=== PATIENT | male | born 1990 | race African-American/Black ===

== ENCOUNTER 2017-08-31 22:31 | Emergency (ER) | payer OTHER ==
[2017-08-31] MEDS ORDERED: ALBUTEROL 2.5 MG/3 ML NEB SOL ONE (23:04)
[2017-08-31] MEDS ORDERED: IPRATROPIUM BROM 0.5MG/2.5ML ONE (23:04)
[2017-08-31] MEDS ORDERED: DEXAMETHASONE 10 MG/ML VIAL ONE (23:04)
--- NOTE | 2017-08-31 23:46 | EDPHYS ---
Physician Documentation [facility] Name: Garcia Mcelroy Age: 26 yrs Sex: Male : 1990 Arrival Date: 08/31/2017 Time: 22:33 Bed 8 Private MD: ED Physician Manuel Mcgee HPI: 08/31 23:39 This 26 yrs old Black Male presents to ER via Ambulatory with complaints of Breathing pm1 Difficulty. 23:39 The patient has shortness of breath at rest. Onset: The symptoms/episode began/occurred pm1 2 day(s) ago. Duration: The symptoms are continuous, and are steadily getting worse. The patient's shortness of breath is aggravated by Ran out of his medication: albuterol. Associated signs and symptoms: Pertinent negatives: chest pain, non-productive cough, productive cough, fever. Severity of symptoms: in the emergency department the symptoms are worse Pain is currently a 0 / 10. The patient has not recently seen a physician. Patient without albuterol for 2 days. Patient uses albuterol 3 times per day. Historical: - Allergies: 22:41 No Known Allergies; bb - Home Meds: 22:41 albuterol inhaler [Active]; bb - PMHx: 22:41 Asthma; bb - PSHx: 22:41 None; bb - Immunization history:: Adult Immunizations up to date. - Social history:: Smoking status: Patient uses tobacco products, stopped one month ago, Patient uses alcohol, occasionally. Patient/guardian denies using street drugs. - Ebola Screening: : No symptoms or risks identified at this time. ROS: 23:39 Constitutional: Negative for fever, chills, and weight loss, Eyes: Negative for injury, pm1 pain, redness, and discharge, ENT: Negative for injury, pain, and discharge, Neck: Negative for injury, pain, and swelling, Cardiovascular: Negative for chest pain, palpitations, and edema. 23:39 Abdomen/GI: Negative for abdominal pain, nausea, vomiting, diarrhea, and constipation, Back: Negative for injury and pain, : Negative for injury, bleeding, discharge, and swelling, MS/Extremity: Negative for injury and deformity, Skin: Negative for injury, rash, and discoloration, Neuro: Negative for headache, weakness, numbness, tingling, and seizure. 23:39 Respiratory: Positive for shortness of breath, wheezing, Negative for cough, sputum production. Exam: 23:39 Constitutional: This is a well developed, well nourished patient who is awake, alert, pm1 and in no acute distress. Head/Face: Normocephalic, atraumatic. Neck: Trachea midline, no thyromegaly or masses palpated, and no cervical lymphadenopathy. Supple, full range of motion without nuchal rigidity, or vertebral point tenderness. No Meningismus. Chest/axilla: Normal chest wall appearance and motion. Nontender with no deformity. No lesions are appreciated. Cardiovascular: Regular rate and rhythm with a normal S1 and S2. No gallops, murmurs, or rubs. Normal PMI, no JVD. No pulse deficits. 23:39 Abdomen/GI: Soft, non-tender, with normal bowel sounds. No distension or tympany. No guarding or rebound. No evidence of tenderness throughout. Back: No spinal tenderness. No costovertebral tenderness. Full range of motion. Skin: Warm, dry with normal turgor. Normal color with no rashes, no lesions, and no evidence of cellulitis. MS/ Extremity: Pulses equal, no cyanosis. Neurovascular intact. Full, normal range of motion. 23:39 Respiratory: the patient does not display signs of respiratory distress, Respirations: normal, Breath sounds: wheezing: expiratory is heard diffusely. 23:39 Neuro: Orientation: is normal, Motor: is normal, Sensation: is normal, no obvious gross deficits. Vital Signs: 22:41 BP 130 / 79; Pulse 79; Resp 20 S; Temp 98.6(O); Pulse Ox 97% on R/A; Weight 99.79 kg bb (R); Height 5 ft. 10 in. (177.80 cm) (R); Pain 0/10; 22:41 Body Mass Index 31.57 (99.79 kg, 177.80 cm) bb MDM: 22:46 Patient medically screened. pm1 23:42 Data reviewed: vital signs. Data interpreted: Pulse oximetry: on room air is 97 %. pm1 Interpretation: normal. 23:44 Counseling: I had a detailed discussion with the patient and/or guardian regarding: the pm1 historical points, exam findings, and any diagnostic results supporting the discharge/admit diagnosis, the need for outpatient follow up, to return to the emergency department if symptoms worsen or persist or if there are any questions or concerns that arise at home. Administered Medications: 23:11 Drug: Decadron 10 mg Route: IM; Site: right deltoid; ao 23:12 Drug: Albuterol - atroVENT (3:1) (2.5 mg - 0.5 mg) 3 ml Route: Nebulizer; ao Disposition: 09/01 15:40 Co-signature as Attending Physician, Manuel Mcgee MD I agree with the assessment and uriel plan of care. Disposition: 08/31/17 23:45 Discharged to Home. Impression: Unspecified asthma with (acute) exacerbation. - Condition is Stable. - Discharge Instructions: Asthma, Adult, How to Use an Inhaler. - Prescriptions for Prednisone 20 mg Oral Tablet - take 3 tablet by ORAL route once daily for 5 days; 15 tablet. Albuterol Sulfate 2.5 mg /3 mL (0.083 %) Inhalation Solution for Nebulization - inhale 1 unit by NEBULIZATION route every 8 hours As needed; 1 box. Albuterol Sulfate 90 mcg/actuation - inhale 1-2 puff by INHALATION route every 4-6 hours; 1 Inhaler. - Work release form, Medication Reconciliation Form, Thank You Letter, Antibiotic Education form. - Follow up: Emergency Department; When: As needed; Reason: Worsening of condition. Follow up: Private Physician; When: 2 - 3 days; Reason: Recheck today's complaints, Continuance of care, Re-evaluation by your physician. - Problem is new. - Symptoms have improved. Signatures: Manuel Mcgee MD MD cha Ballard, Brenda, RN RN Julián Rahman RN RN ao Marinas, Patrick, NP OPERATIONS VICE PRESIDENT pm1 Corrections: (The following items were deleted from the chart) 08/31 23:55 23:45 08/31/2017 23:45 Discharged to Home. Impression: Unspecified asthma with (acute) ao exacerbation. Condition is Stable. Forms are Medication Reconciliation Form, Thank You Letter, Antibiotic Education, Prescription Opioid Use. Follow up: Emergency Department; When: As needed; Reason: Worsening of condition. Follow up: Private Physician; When: 2 - 3 days; Reason: Recheck today's complaints, Continuance of care, Re-evaluation by your physician. Problem is new. Symptoms have improved. pm1
--- NOTE | 2017-08-31 23:46 | ER ---
Nurse's Notes [facility] Name: Garcia Mcelroy Age: 26 yrs Sex: Male : 1990 Arrival Date: 08/31/2017 Time: 22:33 Bed 8 Private MD: Diagnosis: Unspecified asthma with (acute) exacerbation Presentation: 08/31 22:40 Presenting complaint: Patient states: he has asthma and has been out of his inhaler for bb a couple of days and is having shortness of breath, chest is tight, difficulty breathing. Transition of care: patient was not received from another setting of care. Onset of symptoms was August 29, 2017. Risk Assessment: Do you want to hurt yourself or someone else? Patient reports no desire to harm self or others. Initial Sepsis Screen: Does the patient meet any 2 criteria? No. Patient's initial sepsis screen is negative. Does the patient have a suspected source of infection? No. Patient's initial sepsis screen is negative. Care prior to arrival: None. 22:40 Method Of Arrival: Ambulatory bb 22:40 Acuity: SCOTT 3 bb Triage Assessment: 23:53 General: Appears in no apparent distress. comfortable. Respiratory: Reports shortness ao of breath Onset: The symptoms/episode began/occurred suddenly, the patient has moderate shortness of breath. Historical: - Allergies: 22:41 No Known Allergies; bb - Home Meds: 22:41 albuterol inhaler [Active]; bb - PMHx: 22:41 Asthma; bb - PSHx: 22:41 None; bb - Immunization history:: Adult Immunizations up to date. - Social history:: Smoking status: Patient uses tobacco products, stopped one month ago, Patient uses alcohol, occasionally. Patient/guardian denies using street drugs. - Ebola Screening: : No symptoms or risks identified at this time. Screenin:03 Abuse screen: Denies threats or abuse. Denies injuries from another. Nutritional mg2 screening: No deficits noted. Tuberculosis screening: No symptoms or risk factors identified. Fall Risk None identified. Assessment: 23:01 General: Appears distressed, uncomfortable, Behavior is calm, cooperative. Pain: Denies mg2 pain. Neuro: Level of Consciousness is awake, alert, obeys commands, Oriented to person, place, time, situation. Cardiovascular: Capillary refill < 3 seconds Patient's skin is warm and dry. Respiratory: Airway is patent Respiratory effort is even, Respiratory pattern is regular, symmetrical, Breath sounds with wheezes in left posterior upper lobe, right posterior upper lobe, left posterior lower lobe, right posterior middle lobe and right posterior lower lobe. GI: No signs and/or symptoms were reported involving the gastrointestinal system. : No signs and/or symptoms were reported regarding the genitourinary system. EENT: No signs and/or symptoms were reported regarding the EENT system. Derm: Skin is intact, Skin is pink, warm \T\ dry. normal. Musculoskeletal: Circulation, motion, and sensation intact. 23:54 Cardiovascular: Rhythm is regular. ao Vital Signs: 22:41 BP 130 / 79; Pulse 79; Resp 20 S; Temp 98.6(O); Pulse Ox 97% on R/A; Weight 99.79 kg bb (R); Height 5 ft. 10 in. (177.80 cm) (R); Pain 0/10; 22:41 Body Mass Index 31.57 (99.79 kg, 177.80 cm) bb ED Course: 22:33 Patient arrived in ED. es 22:41 Triage completed. bb 22:41 Arm band placed on Patient placed in an exam room, on a stretcher, on pulse oximetry. bb Family accompanied patient. 22:42 Krzysztof Clarke NP is PHCP. pm1 22:42 Manuel Mcgee MD is Attending Physician. pm1 22:46 Gene Romero RN is Primary Nurse. mg2 23:53 No provider procedures requiring assistance completed. Patient did not have IV access ao during this emergency room visit. 23:54 Patient has correct armband on for positive identification. Pulse ox on. NIBP on. ao Administered Medications: 23:11 Drug: Decadron 10 mg Route: IM; Site: right deltoid; ao 23:12 Drug: Albuterol - atroVENT (3:1) (2.5 mg - 0.5 mg) 3 ml Route: Nebulizer; ao Outcome: 23:45 Discharge ordered by . pm1 23:54 Discharged to home ambulatory. ao 23:54 Condition: stable 23:54 Discharge instructions given to patient, Instructed on discharge instructions, follow up and referral plans. Demonstrated understanding of instructions, follow-up care, medications, Prescriptions given X 2. 23:55 Patient left the ED. ao Signatures: Kirby, Marissa es Triana, Teresa, RN RN bb Julián Guerrero RN RN ao Krzysztof Clarke, INSURANCE CLAIM AUDITOR INSURANCE CLAIM AUDITOR pm1 Gene Romero RN RN mg2
== END 2017-08-31 23:55 | disposition home or self-care (01) ==
LOC: ER 22:31
DX: J45.901 Unspecified asthma with (acute) exacerbation (principal)
CPT/HCPCS: 94640; 96372; 99284; J1100

== ENCOUNTER 2017-10-01 20:49 | Emergency (ER) | payer OTHER ==
--- OUTSIDE RECORDS SUMMARY | 2017-10-01 20:51 | XMS REPORT | Clinical Summary ---
:1990 Author Organization [facility] Address [address] [place] [address] Care Team Providers Name Role Phone Asked, No Pcp Primary Care Provider Unavailable Allergies Active Allergy Reactions Severity Noted Date Comments Iodine Swelling 11/18/2016 To eyes Current Medications Prescription Sig. Disp. Refills Start Date End Date Status albuterol (PROAIR Inhale 2 puffs 1 Inhaler 0 11/18/2016 12/18/2016 HFA,PROVENTIL every 4 (four) HFA,VENTOLIN HFA) hours as needed for 90 mcg/actuation wheezing for up to inhaler 30 days. albuterol (ACCUNEB) Take 3 mL (2.5 mg 75 mL 0 11/18/2016 12/18/2016 2.5 mg /3 mL (0.083 total) by %) nebulizer nebulization every solution 6 (six) hours as needed for wheezing for up to 30 days. predniSONE Take 1 tablet (20 10 tablet 0 11/18/2016 11/23/2016 (DELTASONE) 20 mg mg total) by mouth tablet 2 (two) times a day for 5 days. Active Problems Not on file Encounters Date Type Specialty Care Team Description 11/18/2016 Emergency Emergency Medicine Juan Jose Brush Asthma with acute B., DO exacerbation, unspecified asthma severity (Primary Dx) after 09/30/2016 Social History Tobacco Use Types Packs/Day Years Used Date Never Smoker Sex Assigned at Date Recorded Not on file Last Filed Vital Signs Vital Sign Reading Time Taken Blood Pressure 125/74 11/18/2016 3:11 PM CDT Pulse 87 11/18/2016 3:11 PM CDT Temperature 37.1 C (98.7 F) 11/18/2016 1:22 PM CDT Respiratory Rate 19 11/18/2016 3:11 PM CDT Oxygen Saturation 98% 11/18/2016 3:11 PM CDT Inhaled Oxygen Concentration - - Weight 132 kg (290 lb) 11/18/2016 1:23 PM CDT Height 177.8 cm (5' 10") 11/18/2016 1:23 PM CDT Body Mass Index 41.61 11/18/2016 1:23 PM CDT Plan of Treatment Not on file Procedures Procedure Name Priority Date/Time Associated Comments Diagnosis ECG ED PRELIMINARY Routine 11/19/2016 5:51 Results for this INTERPRETATION PM CDT procedure are in the results section. after 09/30/2016 Results ECG ED Preliminary Interpretation - NOT AN ORDER (11/19/2016 5:51 PM) Narrative Performed At Juan Jose Brush DO 11/19/20165:51 PM ECG ED Preliminary Interpretation - Not an Order Performed by: JUAN JOSE BRUSH Authorized by: JUAN JOSE BRUSH Interpretation: Interpretation: normal Rate: ECG rate:73 ECG rate assessment: normal Rhythm: Rhythm: sinus rhythm ST segments: ST segments:Normal T waves: T waves: normal Comments: 13:31 after 09/30/2016
--- NOTE | 2017-10-01 21:40 | ER ---
Nurse's Notes [facility] Name: Garcia Mcelroy Age: 27 yrs Sex: Male : 1990 Arrival Date: 10/01/2017 Time: 21:04 Bed 18 Private MD: Diagnosis: Pilonidal cyst Presentation: 10/01 21:13 Presenting complaint: Patient states: SACRAL MASS FOR 4 DAYS. Transition of care: bp patient was not received from another setting of care. Onset of symptoms is unknown. Risk Assessment: Do you want to hurt yourself or someone else? Patient reports no desire to harm self or others. Initial Sepsis Screen: Does the patient meet any 2 criteria? No. Patient's initial sepsis screen is negative. Does the patient have a suspected source of infection? Yes: Skin breakdown/wound. Care prior to arrival: None. 21:13 Method Of Arrival: Ambulatory bp 21:13 Acuity: SCOTT 3 bp Triage Assessment: 21:14 General: Appears in no apparent distress. uncomfortable, Behavior is calm, cooperative, bp appropriate for age. Pain: Complains of pain in coccyx. Historical: - Allergies: 21:14 No Known Allergies; bp - Home Meds: 21:14 albuterol inhaler [Active]; bp - PMHx: 21:14 Asthma; bp - Immunization history:: Adult Immunizations up to date, Last tetanus immunization: up to date. - Social history:: Smoking status: Patient/guardian denies using tobacco. - Ebola Screening: : Patient negative for fever greater than or equal to 101.5 degrees Fahrenheit, and additional compatible Ebola Virus Disease symptoms Patient denies exposure to infectious person Patient denies travel to an Ebola-affected area in the 21 days before illness onset No symptoms or risks identified at this time. Screenin:16 Abuse screen: Denies threats or abuse. Denies injuries from another. Nutritional bp screening: No deficits noted. Tuberculosis screening: No symptoms or risk factors identified. Fall Risk None identified. Assessment: 21:17 General: SEE TRIAGE NOTE. bp Vital Signs: 21:14 BP 132 / 91; Pulse 88; Resp 20; Temp 98.5; Pulse Ox 100% ; Weight 95.71 kg; Height 5 bp ft. 10 in. (177.80 cm); Pain 7/10; 21:14 Body Mass Index 30.28 (95.71 kg, 177.80 cm) bp ED Course: 21:04 Patient arrived in ED. es 21:11 Keith Barroso MD is Attending Physician. pkl 21:12 John Barboza, RN is Primary Nurse. bp 21:14 Triage completed. bp 21:14 Arm band placed on. bp 21:17 Patient has correct armband on for positive identification. Bed in low position. Call bp light in reach. Side rails up X2. 21:30 Assist provider with I \T\ D: of an abscess on pilonidal cyst Set up I\T\D tray. Performed bp by Keith Barroso MD Culture sent to lab. Wound packed. iodoform gauze, Dressing with 4X4s, Patient tolerated well. 21:39 Jc Mott MD is Referral Physician. pkl 21:58 Patient did not have IV access during this emergency room visit. bp Administered Medications: 21:57 Drug: Cipro 500 mg Route: PO; bp 21:57 Follow up: Response: Medication administered at discharge. bp 21:57 Drug: UltRAM 50 mg Route: PO; bp 21:57 Follow up: Response: Medication administered at discharge. bp Outcome: 21:39 Discharge ordered by . pkl 21:59 Discharged to home ambulatory. bp 21:59 Condition: stable 21:59 Discharge instructions given to patient, Instructed on discharge instructions, follow up and referral plans. medication usage, Demonstrated understanding of instructions, follow-up care, medications, Prescriptions given X 3. 22:00 Patient left the ED. bp Addendum: 10/04/2017 07:45 Addendum: Culture Results: Positive wound culture. No further action required. Bacteria s s sensitive to prescribed antibiotic. Signatures: Keith Barroso MD MD pkl Marissa Vicente Shelby, GIANNI RN John Barboza, RN RN bp
--- NOTE | 2017-10-01 21:41 | EDPHYS ---
Physician Documentation [facility] Name: Garcia Mcelroy Age: 27 yrs Sex: Male : 1990 Arrival Date: 10/01/2017 Time: 21:04 Bed 18 Private MD: ED Physician Keith Barroso HPI: 10/01 21:25 This 27 yrs old Black Male presents to ER via Ambulatory with complaints of Boil. pkl 21:25 The patient presents with an abscess of the coccyx. Onset: The symptoms/episode pkl began/occurred 4 day(s) ago. The patient has not experienced similar symptoms in the past. Historical: - Allergies: 21:14 No Known Allergies; bp - Home Meds: 21:14 albuterol inhaler [Active]; bp - PMHx: 21:14 Asthma; bp - Immunization history:: Adult Immunizations up to date, Last tetanus immunization: up to date. - Social history:: Smoking status: Patient/guardian denies using tobacco. - Ebola Screening: : Patient negative for fever greater than or equal to 101.5 degrees Fahrenheit, and additional compatible Ebola Virus Disease symptoms Patient denies exposure to infectious person Patient denies travel to an Ebola-affected area in the 21 days before illness onset No symptoms or risks identified at this time. ROS: 21:25 Eyes: Negative for injury, pain, redness, and discharge, ENT: Negative for injury, pkl pain, and discharge, Neck: Negative for injury, pain, and swelling, Cardiovascular: Negative for chest pain, palpitations, and edema, Respiratory: Negative for shortness of breath, cough, wheezing, and pleuritic chest pain, Abdomen/GI: Negative for abdominal pain, nausea, vomiting, diarrhea, and constipation, Back: Negative for injury and pain, : Negative for injury, bleeding, discharge, and swelling, MS/Extremity: Negative for injury and deformity, Neuro: Negative for headache, weakness, numbness, tingling, and seizure. 21:25 Skin: Positive for abscess, of the coccyx. Exam: 21:25 Head/Face: Normocephalic, atraumatic. Eyes: Pupils equal round and reactive to light, pkl extra-ocular motions intact. Lids and lashes normal. Conjunctiva and sclera are non-icteric and not injected. Cornea within normal limits. Periorbital areas with no swelling, redness, or edema. ENT: Nares patent. No nasal discharge, no septal abnormalities noted. Tympanic membranes are normal and external auditory canals are clear. Oropharynx with no redness, swelling, or masses, exudates, or evidence of obstruction, uvula midline. Mucous membranes moist. Neck: Trachea midline, no thyromegaly or masses palpated, and no cervical lymphadenopathy. Supple, full range of motion without nuchal rigidity, or vertebral point tenderness. No Meningismus. Chest/axilla: Normal chest wall appearance and motion. Nontender with no deformity. No lesions are appreciated. Cardiovascular: Regular rate and rhythm with a normal S1 and S2. No gallops, murmurs, or rubs. Normal PMI, no JVD. No pulse deficits. Respiratory: Lungs have equal breath sounds bilaterally, clear to auscultation and percussion. No rales, rhonchi or wheezes noted. No increased work of breathing, no retractions or nasal flaring. Abdomen/GI: Soft, non-tender, with normal bowel sounds. No distension or tympany. No guarding or rebound. No evidence of tenderness throughout. Back: No spinal tenderness. No costovertebral tenderness. Full range of motion. MS/ Extremity: Pulses equal, no cyanosis. Neurovascular intact. Full, normal range of motion. Neuro: Awake and alert, GCS 15, oriented to person, place, time, and situation. Cranial nerves II-XII grossly intact. Motor strength 5/5 in all extremities. Sensory grossly intact. Cerebellar exam normal. Normal gait. 21:25 Skin: abscess, that is moderate sized, approximately 3 cm(s), of the coccyx, with fluctuance, that is moderate. Vital Signs: 21:14 BP 132 / 91; Pulse 88; Resp 20; Temp 98.5; Pulse Ox 100% ; Weight 95.71 kg; Height 5 bp ft. 10 in. (177.80 cm); Pain 7/10; 21:14 Body Mass Index 30.28 (95.71 kg, 177.80 cm) bp Procedures: 21:37 I \T\ D: Incision and drainage was performed for an abscess of the pilonidal cyst Prepped pkl with Betadine, Anesthetized with 3 ml's 1% Lidocaine. Incised with #11 blade. Drained large amount purulent fluid. Packed with iodoform gauze, Dressing: sterile 4x4 gauze, the patient tolerated the procedure well. MDM: 21:11 Patient medically screened. pkl 21:37 Data reviewed: vital signs, nurses notes. pkl 10/01 21:46 Order name: Wound Culture bp Administered Medications: 21:57 Drug: Cipro 500 mg Route: PO; bp 21:57 Follow up: Response: Medication administered at discharge. bp 21:57 Drug: UltRAM 50 mg Route: PO; bp 21:57 Follow up: Response: Medication administered at discharge. bp Disposition: 10/01/17 21:39 Discharged to Home. Impression: Pilonidal cyst. - Condition is Stable. - Prescriptions for Ultram 50 mg Oral Tablet - take 1 tablet by ORAL route every 6 hours As needed; 20 tablet. Cipro 500 mg Oral Tablet - take 1 tablet by ORAL route every 12 hours for 7 days; 14 tablet. Bactrim DS 800- 160 mg Oral Tablet - take 1 tablet by ORAL route every 12 hours for 10 days; 20 tablet. - Work release form, Medication Reconciliation Form, Thank You Letter, Antibiotic Education, Prescription Opioid Use form. - Follow up: Jc Mott MD; When: 2 - 3 days; Reason: Re-evaluation by your physician. Signatures: Dispatcher [employer] EDMS Keith Barroso MD MD pkl John Barboza, RN RN bp Corrections: (The following items were deleted from the chart) 22:00 21:39 10/01/2017 21:39 Discharged to Home. Impression: Pilonidal cyst. Condition is bp Stable. Forms are Medication Reconciliation Form, Thank You Letter, Antibiotic Education, Prescription Opioid Use. Follow up: Jc Mott; When: 2 - 3 days; Reason: Re-evaluation by your physician. pkl
[2017-10-01] MEDS ORDERED: CIPROFLOXACIN HCL 500 MG TAB ONE (21:56)
[2017-10-01] MEDS ORDERED: TRAMADOL HCL 50 MG TAB ONE (21:56)
== END 2017-10-01 22:00 | disposition home or self-care (01) ==
LOC: ER 20:49
PROC: 0H98XZZ Drainage of Buttock Skin, External Approach (ICD-10-PCS; principal; 2017-10-01)
DX: L05.01 Pilonidal cyst with abscess (principal); J45.909 Unspecified asthma, uncomplicated
CPT/HCPCS: 87070; 87077; 87186; 87205; 99284

== ENCOUNTER 2018-02-18 15:14 | Emergency (ER) | payer OTHER, SELFPAY ==
--- OUTSIDE RECORDS SUMMARY | 2018-02-18 15:16 | XMS REPORT | Clinical Summary ---
:1990 Author Organization [facility] Address [address] [place] [address] Care Team Providers Name Role Phone Asked, No Pcp Primary Care Provider Unavailable Allergies Active Allergy Reactions Severity Noted Date Comments Iodine Swelling 11/18/2016 To eyes Medications No known medications Active Problems Not on file Social History Tobacco Use Types Packs/Day Years Used Date Never Smoker Sex Assigned at Date Recorded Not on file Job Start Date Occupation Industry Not on file Not on file Not on file Travel History Travel Start Travel End No recent travel history available. Last Filed Vital Signs Not on file Plan of Treatment Not on file Results Not on fileafter 02/17/2017 Advance Directives Patient has advance care planning documents on file. For more information, please contact:[facility] [place] [address]
--- NOTE | 2018-02-18 16:01 | ER ---
Nurse's Notes [facility] Name: Garcia Mcelroy Age: 27 yrs Sex: Male : 1990 Arrival Date: 02/18/2018 Time: 15:17 Bed 16 Private MD: Diagnosis: Periapical abscess without sinus Presentation: 02/18 15:19 Presenting complaint: Patient states: left upper teeth have been cracked for years but sv he started having left side facial swelling 2 days ago. Denies fever. Transition of care: patient was not received from another setting of care. Onset of symptoms was February 16, 2018. Care prior to arrival: None. 15:19 Method Of Arrival: Ambulatory sv 15:19 Acuity: SCOTT 4 sv 15:30 Risk Assessment: Do you want to hurt yourself or someone else? Patient reports no bp desire to harm self or others. Initial Sepsis Screen: Does the patient meet any 2 criteria? No. Patient's initial sepsis screen is negative. Does the patient have a suspected source of infection? No. Patient's initial sepsis screen is negative. Triage Assessment: 15:21 General: Appears in no apparent distress. uncomfortable, Behavior is calm, cooperative, sv appropriate for age. Pain: Complains of pain in left cheek and left mandible Pain currently is 8 out of 10 on a pain scale. Neuro: Level of Consciousness is awake, alert, obeys commands, Oriented to person, place, time, situation, Moves all extremities. Full function Gait is steady, Speech is normal. Respiratory: Respiratory effort is even, unlabored, Respiratory pattern is regular, symmetrical. Derm: swelling noted to left face. Historical: - Allergies: 15:20 No Known Allergies; sv - PMHx: 15:20 Asthma; sv - PSHx: 15:20 None; sv - Immunization history:: Flu vaccine is up to date. - Social history:: Smoking status: Patient/guardian denies using tobacco. - Ebola Screening: : No symptoms or risks identified at this time. Screenin:30 Abuse screen: Denies threats or abuse. Denies injuries from another. Nutritional bp screening: No deficits noted. Tuberculosis screening: No symptoms or risk factors identified. Fall Risk None identified. Assessment: 15:30 General: Appears in no apparent distress. uncomfortable, Behavior is calm, cooperative, bp appropriate for age. Pain: Complains of pain in left mandible. Neuro: Level of Consciousness is awake, alert, obeys commands, Oriented to person, place, time, situation, Appropriate for age. Cardiovascular: No deficits noted. Respiratory: Airway is patent Respiratory effort is even, unlabored, Respiratory pattern is regular, symmetrical. GI: No signs and/or symptoms were reported involving the gastrointestinal system. : No signs and/or symptoms were reported regarding the genitourinary system. EENT: Reports LEFT TOOTH PAIN. Derm: No deficits noted. Musculoskeletal: Circulation, motion, and sensation intact. Range of motion: intact in all extremities. 16:27 Reassessment: PT D/C HOME AMBULATORY, DX WITH PERIAPICAL ABSCESS WITHOUT SINUS. bp Vital Signs: 15:20 BP 118 / 66; Pulse 71; Resp 18; Temp 98.5; Pulse Ox 99% ; Weight 90.72 kg; Height 5 ft. sv 10 in. (177.80 cm); Pain 8/10; 16:29 BP 154 / 69; Pulse 89; Resp 16; Pulse Ox 99% ; bp 15:20 Body Mass Index 28.70 (90.72 kg, 177.80 cm) sv ED Course: 15:17 Patient arrived in ED. mr 15:20 Triage completed. sv 15:21 Arm band placed on Patient placed in an exam room, on a stretcher. sv 15:22 John Barboza, GIANNI is Primary Nurse. bp 15:22 rKzysztof Clarke NP is PHCP. pm1 15:22 Manuel Mcgee MD is Attending Physician. pm1 15:30 Patient has correct armband on for positive identification. Bed in low position. Call bp light in reach. Side rails up X2. 16:00 Assist provider with I \T\ D: of an abscess on left PERIAPICAL ABSCESS Set up I\T\D tray. bp Performed by Krzysztof Clarke NP Patient tolerated well. 16:29 Patient did not have IV access during this emergency room visit. bp Administered Medications: No medications were administered Outcome: 16:00 Discharge ordered by . pm1 16:29 Discharged to home ambulatory. bp 16:29 Condition: stable 16:29 Discharge instructions given to patient, Instructed on discharge instructions, follow up and referral plans. medication usage, Demonstrated understanding of instructions, follow-up care, medications, Prescriptions given X 2. 16:31 Patient left the ED. bp Signatures: Bonny, Paola, GIANNI RN Bobby, [facility] mr Krzysztof Clarke, CUSTOMER SUCCESS DIRECTOR CUSTOMER SUCCESS DIRECTOR pm1 John Barboza, GIANNI RN bp
--- NOTE | 2018-02-18 16:01 | EDPHYS ---
Physician Documentation [facility] Name: Garcia Mcelroy Age: 27 yrs Sex: Male : 1990 Arrival Date: 02/18/2018 Time: 15:17 Bed 16 Private MD: ED Physician Manuel Mcgee HPI: 02/18 15:50 This 27 yrs old Black Male presents to ER via Ambulatory with complaints of Facial pm1 Swelling. 15:50 The patient presents with pain, swelling. The problem is located in the upper left pm1 first molar. Onset: The symptoms/episode began/occurred 2 day(s) ago. Duration: The symptoms are continuous, and are steadily getting worse. Modifying factors: The symptoms are alleviated by nothing, the symptoms are aggravated by air, food. Associated signs and symptoms: Pertinent negatives: chills, dysphagia, fever, inability to eat, vomiting. Severity of symptoms: in the emergency department the symptoms are actually worse. The patient has experienced similar episodes in the past, several times. The patient has not recently seen a physician. Historical: - Allergies: 15:20 No Known Allergies; sv - PMHx: 15:20 Asthma; sv - PSHx: 15:20 None; sv - Immunization history:: Flu vaccine is up to date. - Social history:: Smoking status: Patient/guardian denies using tobacco. - Ebola Screening: : No symptoms or risks identified at this time. ROS: 15:50 Constitutional: Negative for fever, chills, and weight loss, Eyes: Negative for injury, pm1 pain, redness, and discharge. 15:50 Neck: Negative for injury, pain, and swelling, Cardiovascular: Negative for chest pain, palpitations, and edema, Respiratory: Negative for shortness of breath, cough, wheezing, and pleuritic chest pain, Abdomen/GI: Negative for abdominal pain, nausea, vomiting, diarrhea, and constipation, Back: Negative for injury and pain, MS/Extremity: Negative for injury and deformity, Skin: Negative for injury, rash, and discoloration, Neuro: Negative for headache, weakness, numbness, tingling, and seizure. 15:50 ENT: Positive for dental pain, Negative for ear pain, sinus pain, sore throat. Exam: 15:50 Constitutional: This is a well developed, well nourished patient who is awake, alert, pm1 and in no acute distress. Head/Face: Normocephalic, atraumatic. Eyes: Pupils equal round and reactive to light, extra-ocular motions intact. Lids and lashes normal. Conjunctiva and sclera are non-icteric and not injected. Cornea within normal limits. Periorbital areas with no swelling, redness, or edema. 15:50 Neck: Trachea midline, no thyromegaly or masses palpated, and no cervical lymphadenopathy. Supple, full range of motion without nuchal rigidity, or vertebral point tenderness. No Meningismus. Chest/axilla: Normal chest wall appearance and motion. Nontender with no deformity. No lesions are appreciated. Cardiovascular: Regular rate and rhythm with a normal S1 and S2. No gallops, murmurs, or rubs. Normal PMI, no JVD. No pulse deficits. Respiratory: Lungs have equal breath sounds bilaterally, clear to auscultation and percussion. No rales, rhonchi or wheezes noted. No increased work of breathing, no retractions or nasal flaring. Abdomen/GI: Soft, non-tender, with normal bowel sounds. No distension or tympany. No guarding or rebound. No evidence of tenderness throughout. Back: No spinal tenderness. No costovertebral tenderness. Full range of motion. Skin: Warm, dry with normal turgor. Normal color with no rashes, no lesions, and no evidence of cellulitis. MS/ Extremity: Pulses equal, no cyanosis. Neurovascular intact. Full, normal range of motion. 15:50 ENT: External ear(s): are unremarkable, Ear canal(s): are normal, TM's: are normal, Nose: is normal, Mouth: Lips: normal, Oral mucosa: normal, pink and intact, Gums: swollen, on the upper left first molar, abscess, of the upper left first molar, drooling, is not appreciated, No trismus, Posterior pharynx: is normal, airway is patent, normal tonsil apperance, normal sized tonsils, normal uvula appearance, normal uvula size. 15:50 Neuro: Orientation: is normal, Motor: is normal, moves all fours, Gait: is steady, at a normal pace, without difficulty. Vital Signs: 15:20 BP 118 / 66; Pulse 71; Resp 18; Temp 98.5; Pulse Ox 99% ; Weight 90.72 kg; Height 5 ft. sv 10 in. (177.80 cm); Pain 8/10; 16:29 BP 154 / 69; Pulse 89; Resp 16; Pulse Ox 99% ; bp 15:20 Body Mass Index 28.70 (90.72 kg, 177.80 cm) sv Procedures: 15:50 I \T\ D: Incision and drainage was performed for an abscess of the left upper left first pm1 molar Incised with #11 blade. Drained small amount serosanguinous fluid. the patient tolerated the procedure well. MDM: 15:26 Patient medically screened. pm1 15:58 Data reviewed: vital signs. Data interpreted: Pulse oximetry: on room air is 99 %. pm1 Interpretation: normal. Counseling: I had a detailed discussion with the patient and/or guardian regarding: the historical points, exam findings, and any diagnostic results supporting the discharge/admit diagnosis, the need for outpatient follow up, for definitive care, a dentist, to return to the emergency department if symptoms worsen or persist or if there are any questions or concerns that arise at home. Administered Medications: No medications were administered Disposition: 02/18/18 16:00 Discharged to Home. Impression: Periapical abscess without sinus. - Condition is Stable. - Discharge Instructions: Dental Abscess, Dental Pain, Diet and Dental Disease. - Prescriptions for Augmentin 875- 125 mg Oral Tablet - take 1 tablet by ORAL route every 12 hours for 10 days; 20 tablet. Tylenol- Codeine #3 300-30 mg Oral Tablet - take 2 tablets by ORAL route every 6 hours As needed; 20 tablet. - Medication Reconciliation Form, Thank You Letter, Antibiotic Education, Prescription Opioid Use form. - Follow up: Emergency Department; When: As needed; Reason: Worsening of condition. Follow up: Private Physician; When: 2 - 3 days; Reason: Recheck today's complaints, Continuance of care, Re-evaluation by your physician. - Problem is new. - Symptoms have improved. Addendum: 02/20/2018 06:24 Co-signature as Attending Physician, Manuel Mcgee MD I agree with the assessment and c barkley plan of care. Signatures: Paola Draper RN RN Manuel Mcgee MD MD cha Marinas, Patrick, WARRANT CLERK WARRANT CLERK pm1 Jabari, John, RN RN bp Corrections: (The following items were deleted from the chart) 02/18 16:31 16:00 02/18/2018 16:00 Discharged to Home. Impression: Periapical abscess without bp sinus. Condition is Stable. Forms are Medication Reconciliation Form, Thank You Letter, Antibiotic Education, Prescription Opioid Use. Follow up: Emergency Department; When: As needed; Reason: Worsening of condition. Follow up: Private Physician; When: 2 - 3 days; Reason: Recheck today's complaints, Continuance of care, Re-evaluation by your physician. Problem is new. Symptoms have improved. pm1
== END 2018-02-18 16:31 | disposition home or self-care (01) ==
LOC: ER 15:14
PROC: 0W933ZZ Drainage of Oral Cavity and Throat, Percutaneous Approach (ICD-10-PCS; principal; 2018-02-18)
DX: K04.7 Periapical abscess without sinus (principal)
CPT/HCPCS: 99283

== ENCOUNTER 2018-12-12 14:22 | Emergency (ER) | payer SELFPAY ==
[2018-12-12] MEDS ORDERED: ALBUTEROL 2.5 MG/3 ML NEB SOL ONE (14:50)
[2018-12-12] MEDS ORDERED: IPRATROPIUM BROM 0.5MG/2.5ML ONE (14:51)
[2018-12-12] MEDS ORDERED: predniSONE 20 MG TAB ONE ×2 (14:51→14:59)
--- NOTE | 2018-12-12 15:17 | ER ---
Nurse's Notes [facility] Name: Garcia Mcelroy Age: 28 yrs Sex: Male : 1990 Arrival Date: 12/12/2018 Time: 14:24 Bed 19 Private MD: Diagnosis: Moderate persistent asthma with (acute) exacerbation Presentation: 12/12 14:31 Presenting complaint: Patient states: SOB. Pt reports hx of Asthma. Pt states "I just aa5 left a very moldy apartment so I think my asthma flared up". Transition of care: patient was not received from another setting of care. Onset of symptoms was December 12, 2018. Risk Assessment: Do you want to hurt yourself or someone else? Patient reports no desire to harm self or others. Initial Sepsis Screen: Does the patient meet any 2 criteria? No. Patient's initial sepsis screen is negative. Does the patient have a suspected source of infection? No. Patient's initial sepsis screen is negative. Care prior to arrival: None. 14:31 Acuity: SCOTT 3 aa5 14:31 Method Of Arrival: Ambulatory aa5 Historical: - Allergies: 14:33 No Known Allergies; aa5 - PMHx: 14:33 Asthma; aa5 - PSHx: 14:33 None; aa5 - Immunization history:: Adult Immunizations unknown. - Social history:: Smoking status: Patient/guardian denies using tobacco. - Ebola Screening: : No symptoms or risks identified at this time. Screenin:23 Abuse screen: Denies threats or abuse. Denies injuries from another. Nutritional bp screening: No deficits noted. Tuberculosis screening: No symptoms or risk factors identified. Fall Risk None identified. Assessment: 15:22 Reassessment: PT D/C HOME AMBULATORY WITH FAMILY, DX WITH ASTHMA EXACERBATION. bp Vital Signs: 14:32 BP 121 / 89; Pulse 74; Resp 24 S; Temp 98.1(O); Pulse Ox 100% on R/A; Weight 90.72 kg aa5 (R); Height 5 ft. 9 in. (175.26 cm) (R); Pain 0/10; 15:24 BP 124 / 88; Pulse 79; Resp 18; Temp 98; Pulse Ox 99% ; bp 14:32 Body Mass Index 29.53 (90.72 kg, 175.26 cm) aa5 ED Course: 14:24 Patient arrived in ED. aj1 14:31 Arm band placed on Patient placed in an exam room, on a stretcher. aa5 14:32 Cristi Thomas PA is PHCP. [facility] 14:33 Triage completed. aa 14:33 Keven Simeon MD is Attending Physician. 14:47 John Barboza, RN is Primary Nurse. bp 15:23 Patient has correct armband on for positive identification. Bed in low position. Call bp light in reach. Side rails up X2. Adult w/ patient. 15:23 No provider procedures requiring assistance completed. Patient did not have IV access bp during this emergency room visit. Administered Medications: 14:54 Drug: AtroVENT Aerosol 0.5 mg Route: Inhalation; 14:54 Drug: predniSONE 40 mg Route: PO; 14:55 Drug: Albuterol 2.5 mg Route: Inhalation; Outcome: 15:16 Discharge ordered by MD. 15:23 Discharged to home ambulatory, with family. bp 15:23 Condition: stable 15:23 Discharge instructions given to patient, Instructed on discharge instructions, follow up and referral plans. medication usage, Demonstrated understanding of instructions, follow-up care, medications, Prescriptions given X 3. 15:25 Patient left the ED. bp Signatures: Shantel Thomas RN RN aj1 Jasmin Ramos RN RN aa5 Cristi Thomas PA PA [facility] Aliyah Mortensen Keven Simeon MD MD John Barboza, RN RN bp
--- NOTE | 2018-12-12 15:17 | EDPHYS ---
Physician Documentation [facility] Name: Garcia Mcelroy Age: 28 yrs Sex: Male : 1990 Arrival Date: 12/12/2018 Time: 14:24 Bed 19 Private MD: ED Physician Keven Smieon HPI: 12/12 15:13 This 28 yrs old Black Male presents to ER via Ambulatory with complaints of Asthma gs Exacerbation. 15:13 The patient presents to the emergency department with wheezing, Current therapy: gs albuterol inhaler, 1-2 x per week. Onset: The symptoms/episode began/occurred acutely. Modifying factors: The symptoms are alleviated by nothing, the symptoms are aggravated by damp environment, dust, pollen. Associated signs and symptoms: Pertinent negatives: chest pain, choking, fever. Severity of symptoms: At their worst the symptoms were moderate in the emergency department the symptoms have improved mildly. The patient has experienced similar episodes in the past, multiple times. The patient has not recently seen a physician, out of inhaler. Historical: - Allergies: 14:33 No Known Allergies; aa5 - PMHx: 14:33 Asthma; aa5 - PSHx: 14:33 None; aa5 - Immunization history:: Adult Immunizations unknown. - Social history:: Smoking status: Patient/guardian denies using tobacco. - Ebola Screening: : No symptoms or risks identified at this time. ROS: 15:13 All other systems are negative. gs Exam: 15:13 Head/Face: Normocephalic, atraumatic. Eyes: Pupils equal round and reactive to light, gs extra-ocular motions intact. Lids and lashes normal. Conjunctiva and sclera are non-icteric and not injected. Cornea within normal limits. Periorbital areas with no swelling, redness, or edema. ENT: Nares patent. No nasal discharge, no septal abnormalities noted. Tympanic membranes are normal and external auditory canals are clear. Oropharynx with no redness, swelling, or masses, exudates, or evidence of obstruction, uvula midline. Mucous membranes moist. Neck: Trachea midline, no thyromegaly or masses palpated, and no cervical lymphadenopathy. Supple, full range of motion without nuchal rigidity, or vertebral point tenderness. No Meningismus. Chest/axilla: Normal chest wall appearance and motion. Nontender with no deformity. No lesions are appreciated. Cardiovascular: Regular rate and rhythm with a normal S1 and S2. No gallops, murmurs, or rubs. Normal PMI, no JVD. No pulse deficits. Abdomen/GI: Soft, non-tender, with normal bowel sounds. No distension or tympany. No guarding or rebound. No evidence of tenderness throughout. Back: No spinal tenderness. No costovertebral tenderness. Full range of motion. Skin: Warm, dry with normal turgor. Normal color with no rashes, no lesions, and no evidence of cellulitis. MS/ Extremity: Pulses equal, no cyanosis. Neurovascular intact. Full, normal range of motion. Neuro: Awake and alert, GCS 15, oriented to person, place, time, and situation. Cranial nerves II-XII grossly intact. Motor strength 5/5 in all extremities. Sensory grossly intact. Cerebellar exam normal. Normal gait. 15:13 Constitutional: The patient appears alert, awake. 15:13 Respiratory: the patient does not display signs of respiratory distress, Respirations: tachypnea, that is mild, Breath sounds: wheezing: expiratory that is moderate. Vital Signs: 14:32 BP 121 / 89; Pulse 74; Resp 24 S; Temp 98.1(O); Pulse Ox 100% on R/A; Weight 90.72 kg aa5 (R); Height 5 ft. 9 in. (175.26 cm) (R); Pain 0/10; 15:24 BP 124 / 88; Pulse 79; Resp 18; Temp 98; Pulse Ox 99% ; bp 14:32 Body Mass Index 29.53 (90.72 kg, 175.26 cm) aa5 MDM: 14:37 Patient medically screened. 15:13 Differential diagnosis: acute asthma, reactive airway, URI. Data reviewed: vital signs, nurses notes. Counseling: I had a detailed discussion with the patient and/or guardian regarding: the historical points, exam findings, and any diagnostic results supporting the discharge/admit diagnosis. Response to treatment: the patient's symptoms have markedly improved after treatment, the patient's condition has returned to base line, and as a result, I will discharge patient. Administered Medications: 14:54 Drug: AtroVENT Aerosol 0.5 mg Route: Inhalation; 14:54 Drug: predniSONE 40 mg Route: PO; 14:55 Drug: Albuterol 2.5 mg Route: Inhalation; Disposition: 12/12/18 15:16 Discharged to Home. Impression: Moderate persistent asthma with (acute) exacerbation. - Condition is Stable. - Discharge Instructions: Asthma, Adult. - Prescriptions for Prednisone 20 mg Oral Tablet - take 1 tablet by ORAL route once daily for 5 days; 5 tablet. Flovent HFA 110 mcg/actuation Inhalation Aerosol - inhale 2 puffs by INHALATION route 2 times per day; 1 Inhaler. Albuterol Sulfate 90 mcg/actuation - inhale 1-2 puff by INHALATION route every 4-6 hours; 1 Inhaler. - Medication Reconciliation Form, Thank You Letter, Antibiotic Education, Prescription Opioid Use form. - Follow up: Private Physician; When: 1 - 2 days; Reason: Re-evaluation by your physician. Signatures: Jasmin Ramos RN RN aa5 Aliyah Mortensen Keven Simeon MD MD John Barboza RN RN bp Corrections: (The following items were deleted from the chart) 15:25 15:16 12/12/2018 15:16 Discharged to Home. Impression: Moderate persistent asthma with bp (acute) exacerbation. Condition is Stable. Forms are Medication Reconciliation Form, Thank You Letter, Antibiotic Education, Prescription Opioid Use. Follow up: Private Physician; When: 1 - 2 days; Reason: Re-evaluation by your physician.
[2018-12-12 16:19] VITALS: BP 124/88; TEMP 98; O2SAT 99
== END 2018-12-12 15:25 | disposition home or self-care (01) ==
LOC: ER 14:22
DX: J45.41 Moderate persistent asthma with (acute) exacerbation (principal)
CPT/HCPCS: 99284; J7512

== ENCOUNTER 2018-12-14 16:36 | Emergency (ER) | payer SELFPAY ==
[2018-12-14] MEDS ORDERED: MAGNESIUM OXIDE 400 MG TAB ONE (17:27)
[2018-12-14] MEDS ORDERED: dexAMETHasone 4 MG TAB ONE (17:27)
[2018-12-14] MEDS ORDERED: ALBUTEROL 2.5 MG/3 ML NEB SOL ONE ×2 (17:27→17:53)
[2018-12-14] MEDS ORDERED: IPRATROPIUM BROM 0.5MG/2.5ML ONE ×2 (17:27→17:53)
--- NOTE | 2018-12-14 18:22 | ER ---
Nurse's Notes [facility] Name: Garcia Mcelroy Age: 28 yrs Sex: Male : 1990 Arrival Date: 12/14/2018 Time: 16:37 Bed 6 Private MD: Diagnosis: Unspecified asthma with (acute) exacerbation Presentation: 12/14 16:47 Presenting complaint: Patient states: asthma exacerbation started yesterday. Was seen sv here recently and prescribed inhalers but unable to afford them at this time. Transition of care: patient was not received from another setting of care. Onset of symptoms was December 13, 2018. Care prior to arrival: None. 16:47 Method Of Arrival: Ambulatory sv 16:47 Acuity: SCOTT 3 sv Triage Assessment: 16:47 General: Appears in no apparent distress. slender, Behavior is calm, cooperative, sv appropriate for age. Neuro: Level of Consciousness is awake, alert, obeys commands, Gait is steady. Respiratory: Airway is patent Respiratory effort is even, unlabored, Respiratory pattern is symmetrical. Historical: - Allergies: 16:48 No Known Allergies; sv - PMHx: 16:48 Asthma; sv - PSHx: 16:48 None; sv Assessment: 17:39 General: Appears in no apparent distress. Behavior is calm, cooperative. Pain: Denies la1 pain. Neuro: Level of Consciousness is awake, alert, obeys commands, Oriented to person, place, time, situation. Cardiovascular: Capillary refill < 3 seconds Patient's skin is warm and dry. Respiratory: Airway is patent Respiratory effort is even, unlabored, Respiratory pattern is regular, Breath sounds with wheezes bilaterally. GI: No signs and/or symptoms were reported involving the gastrointestinal system. : No signs and/or symptoms were reported regarding the genitourinary system. Vital Signs: 16:48 BP 109 / 83; Pulse 80; Resp 20; Temp 98.1; Pulse Ox 98% ; Weight 90.72 kg; Height 5 ft. sv 10 in. (177.80 cm); 16:48 Body Mass Index 28.70 (90.72 kg, 177.80 cm) sv ED Course: 16:37 Patient arrived in ED. mr 16:44 [facility]C [facility] snw 16:44 Manuel Mcgee MD is Attending Physician. snw 16:47 Triage completed. sv 16:49 Arm band placed on. sv 17:14 Jase Luo, GIANNI is Primary Nurse. la1 17:39 Patient has correct armband on for positive identification. la1 17:39 No provider procedures requiring assistance completed. Patient did not have IV access la1 during this emergency room visit. Administered Medications: 17:31 Drug: Decadron 8 mg Route: PO; la1 17:31 Drug: Albuterol 2.5 mg Route: Inhalation; la1 17:31 Drug: AtroVENT Aerosol 0.5 mg Route: Inhalation; la1 17:31 Drug: Magnesium 400 mg Route: PO; la1 Outcome: 18:21 Discharge ordered by . snw 18:49 Patient left the ED. la1 Signatures: Paola Draper RN RN Carmela Naik, ELECTRICAL SYSTEMS ENGINEER-C ELECTRICAL SYSTEMS ENGINEER-Csnw Miya Bobby Jase Luo RN RN la1 Corrections: (The following items were deleted from the chart) 16:48 16:47 Presenting complaint: Patient states: asthma exacerbation started yesterday. sv sv 16:49 16:48 Pulse 80bpm; Resp 22bpm; Pulse Ox 98%; Temp 98.1F; 90.72 kg; Height 5 ft. 10 in.; sv BMI: 28.7; sv
--- NOTE | 2018-12-14 18:22 | EDPHYS ---
Physician Documentation [facility] Name: Garcia Mcelroy Age: 28 yrs Sex: Male : 1990 Arrival Date: 12/14/2018 Time: 16:37 Bed 6 Private MD: ED Physician Manuel Mcgee HPI: 12/14 17:25 This 28 yrs old Black Male presents to ER via Ambulatory with complaints of Asthma snw Exacerbation. 17:25 The patient presents to the emergency department with wheezing, Current therapy: unable snw to purchase until tomorrow 2nd to finances, the patient was reported to have audible wheezing, chest tightness, non-productive cough, trouble breathing. Onset: The symptoms/episode began/occurred suddenly, 3 day(s) ago, and became worse today. Associated signs and symptoms: The patient has no apparent associated signs or symptoms. Severity of symptoms: At their worst the symptoms were moderate in the emergency department the symptoms are unchanged. The patient has experienced similar episodes in the past. The patient has been recently seen at the [facility] Emergency Department, this week. Historical: - Allergies: 16:48 No Known Allergies; sv - PMHx: 16:48 Asthma; sv - PSHx: 16:48 None; sv ROS: 17:25 Constitutional: Negative for fever, chills, and weight loss, Eyes: Negative for injury, snw pain, redness, and discharge, ENT: Negative for injury, pain, and discharge, Neck: Negative for injury, pain, and swelling, Cardiovascular: Negative for chest pain, palpitations, and edema, Abdomen/GI: Negative for abdominal pain, nausea, vomiting, diarrhea, and constipation, Back: Negative for injury and pain, : Negative for injury, bleeding, discharge, and swelling, MS/Extremity: Negative for injury and deformity, Skin: Negative for injury, rash, and discoloration, Neuro: Negative for headache, weakness, numbness, tingling, and seizure. 17:25 Respiratory: Positive for cough, with no reported sputum, dyspnea on exertion, shortness of breath, wheezing, expiratory. Exam: 17:24 Constitutional: This is a well developed, well nourished patient who is awake, alert, snw and in no acute distress. Head/Face: Normocephalic, atraumatic. Eyes: Pupils equal round and reactive to light, extra-ocular motions intact. Lids and lashes normal. Conjunctiva and sclera are non-icteric and not injected. Cornea within normal limits. Periorbital areas with no swelling, redness, or edema. ENT: Nares patent. No nasal discharge, no septal abnormalities noted. Tympanic membranes are normal and external auditory canals are clear. Oropharynx with no redness, swelling, or masses, exudates, or evidence of obstruction, uvula midline. Mucous membranes moist. Neck: Trachea midline, no thyromegaly or masses palpated, and no cervical lymphadenopathy. Supple, full range of motion without nuchal rigidity, or vertebral point tenderness. No Meningismus. Chest/axilla: Normal chest wall appearance and motion. Nontender with no deformity. No lesions are appreciated. Cardiovascular: Regular rate and rhythm with a normal S1 and S2. No gallops, murmurs, or rubs. Normal PMI, no JVD. No pulse deficits. Abdomen/GI: Soft, non-tender, with normal bowel sounds. No distension or tympany. No guarding or rebound. No evidence of tenderness throughout. Back: No spinal tenderness. No costovertebral tenderness. Full range of motion. Skin: Warm, dry with normal turgor. Normal color with no rashes, no lesions, and no evidence of cellulitis. MS/ Extremity: Pulses equal, no cyanosis. Neurovascular intact. Full, normal range of motion. Neuro: Awake and alert, GCS 15, oriented to person, place, time, and situation. Cranial nerves II-XII grossly intact. Motor strength 5/5 in all extremities. Sensory grossly intact. Cerebellar exam normal. Normal gait. Psych: Awake, alert, with orientation to person, place and time. Behavior, mood, and affect are within normal limits. 17:24 Respiratory: the patient does not display signs of respiratory distress, Respirations: shallow respirations, Breath sounds: wheezing: expiratory that is moderate, is heard diffusely. Vital Signs: 16:48 BP 109 / 83; Pulse 80; Resp 20; Temp 98.1; Pulse Ox 98% ; Weight 90.72 kg; Height 5 ft. sv 10 in. (177.80 cm); 16:48 Body Mass Index 28.70 (90.72 kg, 177.80 cm) sv MDM: 17:05 Patient medically screened. snw 18:21 Data reviewed: vital signs, nurses notes. Data interpreted: Pulse oximetry: on room air snw is 98 %. Interpretation: normal. Counseling: I had a detailed discussion with the patient and/or guardian regarding: the historical points, exam findings, and any diagnostic results supporting the discharge/admit diagnosis, the presence of at least one elevated blood pressure reading (>120/80) during this emergency department visit, the need for outpatient follow up, to return to the emergency department if symptoms worsen or persist or if there are any questions or concerns that arise at home. Special discussion: Based on the history and exam findings, there is no indication for further emergent testing or inpatient evaluation. I discussed with the patient/guardian the need to see the primary care provider for further evaluation of the symptoms. I discussed with the patient/guardian the need to see the event organizer for further evaluation of the symptoms. Administered Medications: 17:31 Drug: Decadron 8 mg Route: PO; la1 17:31 Drug: Albuterol 2.5 mg Route: Inhalation; la1 17:31 Drug: AtroVENT Aerosol 0.5 mg Route: Inhalation; la1 17:31 Drug: Magnesium 400 mg Route: PO; la1 Disposition: 12/15 06:40 Co-signature as Attending Physician, Manuel Mcgee MD I agree with the assessment and uriel plan of care. Disposition: 12/14/18 18:21 Discharged to Home. Impression: Unspecified asthma with (acute) exacerbation. - Condition is Stable. - Discharge Instructions: Asthma, Adult, How to Use an Inhaler, Form - Asthma Action Plan, Adult. - Work release form, Medication Reconciliation Form, Thank You Letter, Antibiotic Education, Prescription Opioid Use form. - Follow up: Private Physician; When: 2 - 3 days; Reason: Recheck today's complaints, Continuance of care, Re-evaluation by your physician. Follow up: Emergency Department; When: As needed; Reason: Worsening of condition. Signatures: Paola Draper RN RN sv Anderson, Corey, MD MD cha Therrien, Shelly, EMTS-C EMTS-Csnw Jase Luo RN RN la1 Corrections: (The following items were deleted from the chart) 12/14 18:49 18:21 12/14/2018 18:21 Discharged to Home. Impression: Unspecified asthma with (acute) la1 exacerbation. Condition is Stable. Forms are Medication Reconciliation Form, Thank You Letter, Antibiotic Education, Prescription Opioid Use. Follow up: Private Physician; When: 2 - 3 days; Reason: Recheck today's complaints, Continuance of care, Re-evaluation by your physician. Follow up: Emergency Department; When: As needed; Reason: Worsening of condition. snw
[2018-12-14 19:00] VITALS: BP 109/83; TEMP 98.1; O2SAT 98
== END 2018-12-14 18:49 | disposition home or self-care (01) ==
LOC: ER 16:36
DX: J45.901 Unspecified asthma with (acute) exacerbation (principal)
CPT/HCPCS: 99284; J8540

== ENCOUNTER 2021-06-16 14:03 | Emergency (ER) | payer SELFPAY ==
[2021-06-16] MEDS ORDERED: METHYLPREDNISOLONE 125 MG INJ ONE (14:20)
[2021-06-16] MEDS ORDERED: Magnesium Sulfate 2gm IVPB 2 G/50 ML BAG IV ONE (14:21)
[2021-06-16] MEDS ORDERED: IPRATROPIUM BROM 0.5MG/2.5ML ONE (14:21)
[2021-06-16] MEDS ORDERED: ALBUTEROL 2.5 MG/3 ML NEB SOL ONE (14:21)
[2021-06-16] MEDS ORDERED: Ringers Lactate 1,000 ML IV ONE (14:42)
[2021-06-16 14:45] LABS: Absolute Lymphocytes (CBC) 2.6 K/uL (0.7-4.9); Hematocrit 49.2 % (39.6-49.0); Lymphocytes % 16.6 % (15.3-44.8); MPV 8.2 fL (7.6-11.3); RBC Red Blood Cell Count 5.68 M/uL (4.33-5.43)
[2021-06-16] MEDS ORDERED: ONDANSETRON 4 MG/2 ML VIAL ONE (14:47)
[2021-06-16 15:09] LABS: Potassium 3.9 mmol/L (3.5-5.1)
[2021-06-16] MEDS ORDERED: LEVALBUTEROL 1.25 MG/3 ML NEB ONE (15:11)
--- NOTE | 2021-06-16 15:53 | RAD REPORT ---
EXAM DESCRIPTION: RAD - Chest Single View - 06/16/2021 3:44 pm CLINICAL HISTORY: DYSPNEA Chest pain. COMPARISON: CHEST PA AND LAT 2 VIEW dated 04/01/2011; CHEST PA AND LAT 2 VIEW dated 07/20/2009; CHEST S VASHTI VIEW dated 12/03/2007; CHEST PA AND LAT 2 VIEW dated 05/04/2007 FINDINGS: Portable technique limits examination quality. The lungs are grossly clear. The heart is normal in size. No displaced fractures. IMPRESSION: No acute intrathoracic process suspected.
--- NOTE | 2021-06-16 17:32 | ER ---
Nurse's Notes [facility] Name: Garcia Mcelroy Age: 30 yrs Sex: Male : 1990 Arrival Date: 06/16/2021 Time: 14:08 Bed 12 Private MD: Diagnosis: Severe persistent asthma with (acute) exacerbation Presentation: 06/16 14:08 Chief complaint: Spouse and/or significant other states: patient started having asthma ap3 symptoms last night, when his sister brought a breathing treatment over to their home. patient utilized breathing treatment and was able to rest. patients significant other states that the patient told her he was just exhausted from working so hard to breath last night. This morning it is reported patient woke up, and was having difficulty breathing again, however the breathing treatments did not improve his symptoms. patient required assistance out of private vehicle. audible wheezing is heard by nurse. 14:08 Method Of Arrival: Wheelchair ap3 14:10 Coronavirus screen: Client denies travel out of the [place] in the last 14 days. ll1 congestion, cough unrelated to allergies, difficulty breathing, shortness of breath, Client presents with at least one sign or symptom that may indicate coronavirus-19. Standard/surgical mask placed on the client. Ebola Screen: Patient denies travel to an Ebola-affected area in the 21 days before illness onset. Initial Sepsis Screen: Does the patient meet any 2 criteria? HR > 90 bpm. No. Patient's initial sepsis screen is negative. Does the patient have a suspected source of infection? Yes: Productive cough/pneumonia. Risk Assessment: Do you want to hurt yourself or someone else? Patient reports no desire to harm self or others. Onset of symptoms was June 15, 2021. 14:10 Acuity: SCOTT 3 ll1 Triage Assessment: 14:12 General: Appears distressed, uncomfortable, Behavior is cooperative, appropriate for ll1 age. Pain: Complains of pain in chest Quality of pain is described as aching, Aggravated by exercise. Respiratory: Reports shortness of breath labored breathing pain with respiration Trachea midline Respiratory effort is labored, Respiratory pattern is symmetrical, tachypnea Breath sounds with wheezes bilaterally. Historical: - Allergies: 14:11 SHELLFISH; ll1 - PMHx: 14:11 Asthma; ll1 - PSHx: 14:11 None; ll1 - Immunization history:: Adult Immunizations up to date. - Social history:: Smoking status: Patient reports the use of cigarette tobacco products, denies chronic smoking, but will smoke occasionally. Screenin:12 Abuse screen: Denies threats or abuse. Nutritional screening: No deficits noted. ll1 Tuberculosis screening: No symptoms or risk factors identified. Fall Risk Total Ordaz Fall Scale indicates No Risk (0-24 pts). Assessment: 14:52 Reassessment: No changes from previously documented assessment. Patient and/or family ll1 updated on plan of care and expected duration. Pain level reassessed. Patient is alert, oriented x 3, equal unlabored respirations, skin warm/dry/pink. Patient states symptoms have improved. 15:45 Reassessment: No changes from previously documented assessment. Patient and/or family ll1 updated on plan of care and expected duration. Pain level reassessed. Patient is alert, oriented x 3, equal unlabored respirations, skin warm/dry/pink. Patient states feeling better. 16:45 Reassessment: No changes from previously documented assessment. Patient and/or family ll1 updated on plan of care and expected duration. Pain level reassessed. Patient is alert, oriented x 3, equal unlabored respirations, skin warm/dry/pink. 17:45 Reassessment: No changes from previously documented assessment. Patient and/or family ll1 updated on plan of care and expected duration. Pain level reassessed. Patient is alert, oriented x 3, equal unlabored respirations, skin warm/dry/pink. Vital Signs: 14:10 BP 120 / 88; Pulse 118; Resp 26; Temp 97.2; Pulse Ox 94% on R/A; Weight 106.59 kg; ll1 Height 5 ft. 11 in. (180.34 cm); Pain 7/10; 14:30 Resp 22; Pulse Ox 100% ; ll1 14:51 Resp 22; Pulse Ox 84% on R/A; ll1 14:51 Pulse Ox 93% on 4 lpm NC; ll1 15:11 Resp 22; Pulse Ox 97% on 4 lpm NC; ll1 16:22 BP 137 / 94; Pulse 88; Resp 20; Pulse Ox 95% on R/A; ll1 17:11 Resp 20; Pulse Ox 94% on R/A; ll1 17:11 Resp 20; Pulse Ox 95% on R/A; ll1 17:48 BP 130 / 80; Pulse 102; Resp 19; Pulse Ox 95% ; ll1 14:10 Body Mass Index 32.77 (106.59 kg, 180.34 cm) ll1 14:51 Jeanie Thomas notified. O2 ordered. ll1 17:11 while walking around ER ll1 17:11 while laying on stretcher. ll1 ED Course: 14:08 Patient arrived in ED. ap3 14:09 Cristi Thomas PA is PHCP. jr8 14:09 Jackie Salazar MD is Attending Physician. jr8 14:10 Herrera Rich, GIANNI is Primary Nurse. ll1 14:10 Arm band placed on Patient placed in an exam room, on a stretcher. ll1 14:11 Triage completed. ll1 14:12 Patient has correct armband on for positive identification. Bed in low position. Call ll1 light in reach. Side rails up X 1. Cardiac monitoring not applicable on this patient. 14:48 Inserted saline lock: 22 gauge in right antecubital area, using aseptic technique. ll1 Blood collected. 15:45 Chest Single View XRAY In Process Unspecified. EDMS 17:49 No provider procedures requiring assistance completed. IV discontinued, intact, ll1 bleeding controlled, No redness/swelling at site. Pressure dressing applied. Administered Medications: 14:22 Drug: Albuterol - atroVENT (ipratropium) (3:1) (2.5 mg - 0.5 mg) 3 ml Route: Nebulizer; ll1 14:46 Follow up: Response: No adverse reaction ll1 14:30 Drug: SOLU-Medrol (methylPrednisoLONE) 125 mg Route: IVP; Site: right antecubital; ll1 14:46 Follow up: Response: No adverse reaction ll1 14:31 Drug: Magnesium Sulfate 2 grams Route: IVPB; Infused Over: 2 hrs; Site: right ll1 antecubital; 14:46 Follow up: Response: No adverse reaction; IV Status: Completed infusion; IV Intake: [id number] 14:46 Drug: Ringers - Lactated Ringers Solution 1000 ml Route: IV; Rate: bolus; Site: right ll1 antecubital; 16:06 Follow up: Response: No adverse reaction; IV Status: Completed infusion; IV Intake: ll1 1000ml 15:11 Drug: Xopenex (levalbuterol) (3) 1.25 mg Route: Inhalation; ll1 16:06 Follow up: Response: No adverse reaction ll1 Intake: 14:46 IV: 50ml; Total: 50ml. ll1 16:06 IV: 1000ml; Total: 1050ml. ll1 Outcome: 17:31 Discharge ordered by MD. hernandez 17:49 Discharged to home ambulatory. ll1 17:49 Condition: stable 17:49 Discharge instructions given to patient, family, Instructed on discharge instructions, follow up and referral plans. medication usage, Demonstrated understanding of instructions, follow-up care, medications, Prescriptions given X 4. 17:50 Patient left the ED. ll1 Signatures: Dispatcher [employer] EDMS Cristi Thomas PA PA jr8 Suki Goodman RN RN [email or web address] Herrera Rich RN RN ll1 Corrections: (The following items were deleted from the chart) 14:47 14:10 BP 120 / 88; Pulse 118bpm; Resp 26bpm; Temp 97.2F; 106.59 kg; Height 5 ft. 11 ll1 in.; BMI: 32.7; Pain 7/10; ll1 16:25 16:22 Pulse 88bpm; Resp 20bpm; Pulse Ox 95% RA; ll1 ll1 17:12 17:11 Pulse 20bpm; Pulse Ox 95% RA; while laying on stretcher.; ll1 ll1
--- NOTE | 2021-06-16 17:32 | EDPHYS ---
Physician Documentation [facility] Name: Garcia Mcelroy Age: 30 yrs Sex: Male : 1990 Arrival Date: 06/16/2021 Time: 14:08 Bed 12 Private MD: ED Physician Jackie Salazar HPI: 06/16 14:32 This 30 yrs old Black Male presents to ER via Wheelchair with complaints of Asthma jr8 Exacerbation. 14:32 The patient presents to the emergency department with wheezing, Current therapy: jr8 albuterol nebs, the patient was reported to have audible wheezing, chest tightness, trouble breathing. 30-year-old male presents to the ER complaining of asthma exacerbation. The patient states that he developed shortness of breath 12 hours ago. States that he has used albuterol nebs at home with no relief. Also complains of wheezing and chest tightness.. Historical: - Allergies: 14:11 SHELLFISH; ll1 - PMHx: 14:11 Asthma; ll1 - PSHx: 14:11 None; ll1 - Immunization history:: Adult Immunizations up to date. - Social history:: Smoking status: Patient reports the use of cigarette tobacco products, denies chronic smoking, but will smoke occasionally. ROS: 14:32 Constitutional: Positive for fatigue, Negative for chills, fever. jr8 14:32 Constitutional: Positive for lethargic. 14:32 Respiratory: Positive for cough, shortness of breath, at rest. wheezing, inspiratory, expiratory, of the right upper lobe, left upper lobe, right middle lobe, left lower lobe, right lower lobe, left posterior upper lobe, right posterior upper lobe, left posterior lower lobe, right posterior middle lobe and right posterior lower lobe. 14:32 Abdomen/GI: Negative for abdominal pain. 14:32 Skin: Positive for diaphoresis. 14:32 Neuro: Positive for 14:32 All other systems are negative. Exam: 14:32 Abdomen/GI: Soft, non-tender, with normal bowel sounds. No distension or tympany. No jr8 guarding or rebound. No evidence of tenderness throughout. 14:32 Constitutional: The patient appears lethargic. 14:32 Cardiovascular: Rate: normal, Rhythm: regular. 14:32 Respiratory: moderate respiratory distress is noted, Respirations: labored breathing, accessory muscle usage, tachypnea, that is moderate, Breath sounds: wheezing: inspiratory expiratory is heard diffusely. 14:32 Skin: Appearance: diaphoresis is noted. Vital Signs: 14:10 BP 120 / 88; Pulse 118; Resp 26; Temp 97.2; Pulse Ox 94% on R/A; Weight 106.59 kg; ll1 Height 5 ft. 11 in. (180.34 cm); Pain 7/10; 14:30 Resp 22; Pulse Ox 100% ; ll1 14:51 Resp 22; Pulse Ox 84% on R/A; ll1 14:51 Pulse Ox 93% on 4 lpm NC; ll1 15:11 Resp 22; Pulse Ox 97% on 4 lpm NC; ll1 16:22 BP 137 / 94; Pulse 88; Resp 20; Pulse Ox 95% on R/A; ll1 17:11 Resp 20; Pulse Ox 94% on R/A; ll1 17:11 Resp 20; Pulse Ox 95% on R/A; ll1 17:48 BP 130 / 80; Pulse 102; Resp 19; Pulse Ox 95% ; ll1 14:10 Body Mass Index 32.77 (106.59 kg, 180.34 cm) ll1 14:51 Jeanie Thomas notified. O2 ordered. ll1 17:11 while walking around ER ll1 17:11 while laying on stretcher. ll1 MDM: 14:09 Patient medically screened. jr8 17:29 Data reviewed: vital signs, nurses notes, lab test result(s), radiologic studies, plain jr8 films. Data interpreted: Pulse oximetry: on room air is 95 %. Interpretation: acceptable. Counseling: I had a detailed discussion with the patient and/or guardian regarding: the historical points, exam findings, and any diagnostic results supporting the discharge/admit diagnosis, lab results, radiology results, the need for outpatient follow up, a family practitioner, to return to the emergency department if symptoms worsen or persist or if there are any questions or concerns that arise at home. Response to treatment: the patient's symptoms have markedly improved after treatment. ED course: Patient is doing markedly better after treatments. We took pulse oximetry both at rest and with ambulation. Patient maintained a saturation of 95% at rest and with ambulation. No increased work of breathing. Patient stated that he feels markedly better and is okay to go home at this time. Close return precautions given to both patient and his significant other. Recommended that we add adjunctive therapy for his asthma as he is using his inhaler multiple times a day weekly. Patient currently not well controlled. Also recommended following up with his primary care in the next 1 to 2 days to further work on this. Knows to come back at any point time if he were to worsen. Patient and significant other good with plan at this time.. 06/16 14:14 Order name: CBC with Diff; Complete Time: 14:56 06/16 14:14 Order name: Basic Metabolic Panel; Complete Time: 15:11 06/16 14:58 Order name: Chest Single View XRAY; Complete Time: 15:54 06/16 14:14 Order name: IV; Complete Time: 14:16 06/16 14:58 Order name: Oxygen; Complete Time: 15:06 8 Administered Medications: 14:22 Drug: Albuterol - atroVENT (ipratropium) (3:1) (2.5 mg - 0.5 mg) 3 ml Route: Nebulizer; ll1 14:46 Follow up: Response: No adverse reaction ll1 14:30 Drug: SOLU-Medrol (methylPrednisoLONE) 125 mg Route: IVP; Site: right antecubital; ll1 14:46 Follow up: Response: No adverse reaction ll1 14:31 Drug: Magnesium Sulfate 2 grams Route: IVPB; Infused Over: 2 hrs; Site: right ll1 antecubital; 14:46 Follow up: Response: No adverse reaction; IV Status: Completed infusion; IV Intake: [id number] 14:46 Drug: Ringers - Lactated Ringers Solution 1000 ml Route: IV; Rate: bolus; Site: right ll1 antecubital; 16:06 Follow up: Response: No adverse reaction; IV Status: Completed infusion; IV Intake: ll1 1000ml 15:11 Drug: Xopenex (levalbuterol) (3) 1.25 mg Route: Inhalation; ll1 16:06 Follow up: Response: No adverse reaction ll1 Disposition Summary: 06/16/21 17:31 Discharge Ordered Location: Home jr8 Problem: new jr8 Symptoms: have improved jr8 Condition: Stable jr8 Diagnosis - Severe persistent asthma with (acute) exacerbation jr8 Followup: jr8 - With: Private Physician - When: 2 - 3 days - Reason: Recheck today's complaints, Continuance of care, Re-evaluation by your physician Discharge Instructions: - Discharge Summary Sheet jr8 - Asthma, Adult jr8 Forms: - Medication Reconciliation Form jr8 - Thank You Letter jr8 - Antibiotic Education jr8 - Prescription Opioid Use jr8 - Work release form mw2 Prescriptions: - budesonide 180 mcg/actuation Inhalation aerosol powdr breath activated - inhale 2 puff by INHALATION route 2 times per day; 1 Inhaler; Refills: 0, jr8 Product Selection Permitted - montelukast 10 mg Oral tablet - take 1 tablet by ORAL route once daily; 30 tablet; Refills: 0, Product jr8 Selection Permitted - Medrol ([place]) 4 mg Oral Tablets, Dose Pack - take 1 tablet by ORAL route as directed - follow package instructions; 1 jr8 packet; Refills: 0, Product Selection Permitted - albuterol sulfate 90 mcg/actuation Inhalation HFA aerosol inhaler - inhale 2 puff by INHALATION route every 4 hours As needed; 1 Inhaler; Refills: jr8 0, Product Selection Permitted Signatures: Dispatcher [employer] Cristi Vallejo PA PA jr8 Herrera Rich RN RN ll1
[2021-06-17 07:23] VITALS: TEMP 97.2
[2021-06-17 07:28] VITALS: O2SAT 95
[2021-06-17 07:30] VITALS: BP 130/80
== END 2021-06-16 17:50 | disposition home or self-care (01) ==
LOC: ER 14:03
DX: J45.51 Severe persistent asthma with (acute) exacerbation (principal); F17.210 Nicotine dependence, cigarettes, uncomplicated; Z91.013 Allergy to seafood
CPT/HCPCS: 36415; 71045; 80048; 85025; 94640; 96365; 96375; 99284; J2405; J2930; J3475; J7120

== ENCOUNTER 2021-09-09 05:55 | Emergency (ER) | payer OTHER, SELFPAY ==
--- NOTE | 2021-09-09 06:18 | ER ---
Nurse's Notes [facility] Name: Garcia Mcelroy Age: 30 yrs Sex: Male : 1990 Arrival Date: 09/09/2021 Time: 05:58 Bed 12 Private MD: Diagnosis: Dental caries, unspecified;Atypical facial pain Presentation: 09/09 06:06 Chief complaint: Patient states: I have a tooth ache on the right upper side that kd3 started yesterday. I bought some amoxicillin and ibuprofen at [facility] yesterday and went to bed and i woke up this morning and it is 10 x worse. Coronavirus screen: Vaccine status: Patient reports being unvaccinated. Ebola Screen: No symptoms or risks identified at this time. Initial Sepsis Screen: Does the patient meet any 2 criteria? No. Patient's initial sepsis screen is negative. Does the patient have a suspected source of infection? No. Patient's initial sepsis screen is negative. Risk Assessment: Do you want to hurt yourself or someone else? Patient reports no desire to harm self or others. Onset of symptoms was September 08, 2021. 06:06 Method Of Arrival: Ambulatory kd3 06:06 Acuity: SCOTT 4 kd3 Triage Assessment: 06:09 General: Appears uncomfortable, Behavior is calm, cooperative. Pain: Complains of pain kd3 in face, right upper teeth. EENT: Reports pain in right upper teeth. Neuro: Level of Consciousness is awake, alert, obeys commands, Oriented to person, place, time, situation. Cardiovascular: Patient's skin is warm and dry. Respiratory: Airway is patent Trachea midline Respiratory effort is even, unlabored, Respiratory pattern is regular, symmetrical. Historical: - Allergies: 06:09 SHELLFISH; kd3 - Home Meds: 06:09 albuterol inhaler [Active]; kd3 - PMHx: 06:09 Asthma; kd3 - Immunization history:: Adult Immunizations up to date, Client reports having NOT received the Covid vaccine. - Social history:: Smoking status: unknown. Screenin:11 Abuse screen: Denies threats or abuse. Denies injuries from another. Nutritional kd3 screening: No deficits noted. Tuberculosis screening: No symptoms or risk factors identified. Fall Risk None identified. Assessment: 06:11 Reassessment: see triage. kd3 Vital Signs: 06:06 BP 137 / 104; Pulse 79; Resp 18; Temp 98.3(O); Pulse Ox 98% on R/A; Weight 117.93 kg; kd3 Height 5 ft. 11 in. (180.34 cm); Pain 10/10; 06:26 BP 123 / 86; Pulse 94; Resp 16; Pulse Ox 100% on R/A; kd3 06:06 Body Mass Index 36.26 (117.93 kg, 180.34 cm) kd3 ED Course: 05:58 Patient arrived in ED. bp1 06:06 Queenie Frank, RN is Primary Nurse. kd3 06:07 Misha Alvarez MD is Attending Physician. kdr 06:09 Triage completed. kd3 06:09 Arm band placed on right wrist. kd3 06:11 Patient has correct armband on for positive identification. kd3 06:11 No provider procedures requiring assistance completed. kd3 06:26 Patient did not have IV access during this emergency room visit. kd3 Administered Medications: 06:27 Drug: Ketorolac 15 mg Route: IM; Site: left deltoid; kd3 06:27 Follow up: Response: No adverse reaction kd3 06:27 Drug: Clindamycin 300 mg Route: PO; kd3 06:27 Follow up: Response: No adverse reaction kd3 Medication: 06:26 VIS not applicable for this client. kd3 Outcome: 06:17 Discharge ordered by . kdr 06:26 Discharged to home ambulatory. kd3 06:26 Condition: stable 06:26 Discharge instructions given to patient, Instructed on discharge instructions, follow up and referral plans. Demonstrated understanding of instructions, follow-up care, Prescriptions given X 3. 06:27 Patient left the ED. kd3 Signatures: Misha Alvarez MD MD kdr Hina Keller bp1 Queenie Frank, GIANNI RN kd3
--- NOTE | 2021-09-09 06:18 | EDPHYS ---
Physician Documentation [facility] Name: Garcia Mcelroy Age: 30 yrs Sex: Male : 1990 Arrival Date: 09/09/2021 Time: 05:58 Bed 12 Private MD: ED Physician Misha Alvarez Historical: - Allergies: 09/09 06:09 SHELLFISH; kd3 - Home Meds: 06:09 albuterol inhaler [Active]; kd3 - PMHx: 06:09 Asthma; kd3 - Immunization history:: Adult Immunizations up to date, Client reports having NOT received the Covid vaccine. - Social history:: Smoking status: unknown. Vital Signs: 06:06 BP 137 / 104; Pulse 79; Resp 18; Temp 98.3(O); Pulse Ox 98% on R/A; Weight 117.93 kg; kd3 Height 5 ft. 11 in. (180.34 cm); Pain 10/10; 06:26 BP 123 / 86; Pulse 94; Resp 16; Pulse Ox 100% on R/A; kd3 06:06 Body Mass Index 36.26 (117.93 kg, 180.34 cm) kd3 MDM: 06:17 Patient medically screened. kdr Administered Medications: 06:27 Drug: Ketorolac 15 mg Route: IM; Site: left deltoid; kd3 06:27 Follow up: Response: No adverse reaction kd3 06:27 Drug: Clindamycin 300 mg Route: PO; kd3 06:27 Follow up: Response: No adverse reaction kd3 Disposition Summary: 09/09/21 06:17 Discharge Ordered Location: Home kdr Problem: new kdr Symptoms: are unchanged kdr Condition: Stable kdr Diagnosis - Dental caries, unspecified kdr - Atypical facial pain kdr Followup: kdr - With: Private Physician - When: 2 - 3 days - Reason: If symptoms return, Further diagnostic work-up, Recheck today's complaints, Continuance of care, Re-evaluation by your physician Discharge Instructions: - Discharge Summary Sheet kdr - Dental Caries, Adult kdr - Dental Pain, [id number] kdr Forms: - Medication Reconciliation Form kdr - Thank You Letter kdr - Antibiotic Education kdr - Prescription Opioid Use kdr Prescriptions: - Amoxicillin 500 mg Oral Capsule - take 1 capsule by ORAL route every 8 hours for 10 days; 30 tablet; Refills: 0, kdr Product Selection Permitted - Clindamycin HCl 300 mg Oral Capsule - take 1 capsule by ORAL route every 6 hours for 10 days; 40 capsule; Refills: 0, kdr Product Selection Permitted - Tramadol 50 mg Oral Tablet - take 1 tablet by ORAL route every 8 hours as needed; 12 tablet; Refills: 0, kdr Product Selection Permitted Signatures: Misha Alvarez MD MD kdr Queenie Frank RN RN kd3
[2021-09-09] MEDS ORDERED: KETOROLAC 30 MG/ML INJ ONE (06:25)
[2021-09-09 06:33] VITALS: TEMP 98.3
[2021-09-09 06:35] VITALS: BP 123/86; O2SAT 100
== END 2021-09-09 06:27 | disposition home or self-care (01) ==
LOC: ER 05:55
DX: K02.9 Dental caries, unspecified (principal); J45.909 Unspecified asthma, uncomplicated; Z91.013 Allergy to seafood

== ENCOUNTER 2022-01-16 12:40 | Emergency (ER) | payer SELFPAY ==
[2022-01-16] MEDS ORDERED: HYDROCODONE/APAP 5/325 MG TAB ONE (14:01)
--- NOTE | 2022-01-16 14:37 | RAD REPORT ---
EXAM DESCRIPTION: RAD - Hand Right 3 View - 01/16/2022 2:27 pm CLINICAL HISTORY: Pain COMPARISON: No comparisons FINDINGS/IMPRESSION: Acute fracture at the base of the fourth metacarpal with probable intra-articul ar extension. Deformity and mild angulation at the distal fifth metacarpal head may be chronic. Corre late with site of pain.
[2022-01-16] MEDS ORDERED: IBUPROFEN 200 MG TAB PO ONE (14:53)
--- NOTE | 2022-01-16 15:01 | ER ---
Nurse's Notes [facility] Name: Garcia Mcelroy Age: 31 yrs Sex: Male : 1990 Arrival Date: 01/16/2022 Time: 12:42 Bed 9 Private MD: Diagnosis: Comminuted right fourth metacarpal fracture Presentation: 01/16 13:22 Chief complaint: Patient states: Pt reports falling during basketball game on ss night and landing on right hand. Reports pain and swelling to right hand. Coronavirus screen: Vaccine status: Patient reports being unvaccinated. Client denies travel out of the [place] in the last 14 days. Ebola Screen: Patient negative for fever greater than or equal to 101.5 degrees Fahrenheit, and additional compatible Ebola Virus Disease symptoms Patient denies exposure to infectious person. Patient denies travel to an Ebola-affected area in the 21 days before illness onset. Initial Sepsis Screen: Does the patient meet any 2 criteria? No. Patient's initial sepsis screen is negative. Does the patient have a suspected source of infection? No. Patient's initial sepsis screen is negative. Risk Assessment: Do you want to hurt yourself or someone else? Patient reports no desire to harm self or others. Onset of symptoms was January 14, 2022. 13:22 Method Of Arrival: Ambulatory ss 13:22 Acuity: SCOTT 4 ss Triage Assessment: 13:24 General: Appears in no apparent distress. Behavior is calm, cooperative. Pain: ss Complains of pain in dorsum of right hand Pain does not radiate. Pain currently is 4 out of 10 on a pain scale. Quality of pain is described as aching, throbbing. 13:40 Injury Description: fell while laying basketball on of last week. mb9 Historical: - Allergies: 13:24 SHELLFISH; ss - Home Meds: 13:24 albuterol inhaler [Active]; ss - PMHx: 13:24 Asthma; ss - PSHx: 13:24 None; ss - Immunization history:: Adult Immunizations up to date, Client reports having NOT received the Covid vaccine. Last tetanus immunization: up to date unknown. - Social history:: Smoking status: Smoking status: Patient reports the use of cigarette tobacco products, smokes one-half pack cigarettes per day. Screenin:40 Abuse screen: Denies threats or abuse. Nutritional screening: No deficits noted. mb9 Tuberculosis screening: No symptoms or risk factors identified. Fall Risk None identified. Assessment: 13:38 General: Appears in no apparent distress. comfortable, Behavior is calm, cooperative, mb9 appropriate for age. Pain: Complains of pain in right hand Pain currently is 4 out of 10 on a pain scale. Quality of pain is described as burning, aching, Aggravated by increased activity, weight bearing. Neuro: Level of Consciousness is awake, alert, obeys commands, Oriented to person, place, time, situation, Certified Nursing Attendant are weak on right. Cardiovascular: Heart tones S1 S2 present Capillary refill < 3 seconds in bilateral fingers Rhythm is regular. Respiratory: Airway is patent Respiratory effort is even, unlabored, Respiratory pattern is regular, symmetrical, Breath sounds are clear bilaterally. GI: Abdomen is round Bowel sounds present X 4 quads. Abd is soft and non tender X 4 quads. : No signs and/or symptoms were reported regarding the genitourinary system. EENT: No signs and/or symptoms were reported regarding the EENT system. Derm: Skin is normal. Musculoskeletal: Range of motion: limited in right hand Swelling present in right hand. 14:10 Reassessment: Gave report to oncoming nurse GIANNI Murillo. mb9 15:15 Reassessment: Patient appears in no apparent distress at this time. Patient and/or hb family updated on plan of care and expected duration. Pain level reassessed. Patient is alert, oriented x 3, equal unlabored respirations, skin warm/dry/pink. Vital Signs: 13:22 BP 159 / 112; Pulse 93; Resp 20; Temp 98.7; Pulse Ox 100% ; Weight 104.33 kg; Height 5 ss ft. 10 in. (177.80 cm); Pain 4/10; 13:22 Body Mass Index 33.00 (104.33 kg, 177.80 cm) ED Course: 12:42 Patient arrived in ED. as 12:51 Carmela Estrella FNP-C is PHCP. snw 12:51 Jackie Salazar MD is Attending Physician. snw 13:24 Triage completed. ss 13:24 Arm band placed on left wrist. ss 13:35 Miya Beck RN is Primary Nurse. mb9 13:40 Bed in low position. Call light in reach. Side rails up X 1. mb9 13:40 No provider procedures requiring assistance completed. mb9 14:29 Hand Right 3 View XRAY In Process Unspecified. EDMS 15:00 Orthoglass splint: Ulnar gutter/Boxer splint applied on right forearm. zm 15:31 Patient did not have IV access during this emergency room visit. hb Administered Medications: 14:01 Drug: Bob White (HYDROcodone-acetaminophen) 5 mg-325 mg 1 tabs Route: PO; mb9 14:55 Follow up: Response: No adverse reaction hb 14:55 Drug: Motrin (ibuprofen) 600 mg Route: PO; hb 15:30 Follow up: Response: No adverse reaction hb Medication: 13:40 VIS not applicable for this client. mb9 Outcome: 15:00 Discharge ordered by . snw 15:31 Discharged to home ambulatory. hb 15:31 Condition: stable 15:31 Discharge instructions given to patient, Instructed on discharge instructions, follow up and referral plans. medication usage, Demonstrated understanding of instructions, follow-up care, medications, Prescriptions given X 2. 15:31 Patient left the ED. hb Signatures: Dispatcher [employer] EDMS Carmela Estrella, UPHOLSTERY AUTO TRIMMER-C UPHOLSTERY AUTO TRIMMER-Csnw Asha Connolly Shelby, RN RN ss Baxter, Heather, RN RN hb Martinez, Zaina zm Breneman, Miya Lerma RN RN mb9 Corrections: (The following items were deleted from the chart) 13:26 13:22 Pulse 93bpm; Resp 20bpm; Pulse Ox 100%; Temp 98.7F; 104.33 kg; Height 5 ft. 10 ss in.; BMI: 33.0; Pain 4/10; ss 15:33 15:31 Discharge instructions given to patient, Instructed on discharge instructions, hb follow up and referral plans. medication usage, Demonstrated understanding of instructions, follow-up care, medications, hb
--- NOTE | 2022-01-16 15:01 | EDPHYS ---
Physician Documentation [facility] Name: Garcia Mcelroy Age: 31 yrs Sex: Male : 1990 Arrival Date: 01/16/2022 Time: 12:42 Bed 9 Private MD: ED Physician Jackie Salazar HPI: 01/16 14:00 This 31 yrs old Black Male presents to ER via Ambulatory with complaints of Hand Injury.snw 14:00 The patient or guardian reports a contusion, deformity, pain, swelling. The complaints snw affect the right hand diffusely. Context: The problem was sustained at a sports field or court, resulted from a fall. Onset: The symptoms/episode began/occurred acutely. Associated signs and symptoms: The patient has no apparent associated signs or symptoms. Severity of symptoms: At their worst the symptoms were moderate. The patient has not experienced similar symptoms in the past. Historical: - Allergies: 13:24 SHELLFISH; ss - Home Meds: 13:24 albuterol inhaler [Active]; ss - PMHx: 13:24 Asthma; ss - PSHx: 13:24 None; ss - Immunization history:: Adult Immunizations up to date, Client reports having NOT received the Covid vaccine. Last tetanus immunization: up to date unknown. - Social history:: Smoking status: Smoking status: Patient reports the use of cigarette tobacco products, smokes one-half pack cigarettes per day. ROS: 14:00 Constitutional: Negative for fever, chills, and weight loss, Eyes: Negative for injury, snw pain, redness, and discharge, ENT: Negative for injury, pain, and discharge, Neck: Negative for injury, pain, and swelling, Cardiovascular: Negative for chest pain, palpitations, and edema, Respiratory: Negative for shortness of breath, cough, wheezing, and pleuritic chest pain, Abdomen/GI: Negative for abdominal pain, nausea, vomiting, diarrhea, and constipation, Back: Negative for injury and pain, : Negative for injury, bleeding, discharge, and swelling, Skin: Negative for injury, rash, and discoloration, Neuro: Negative for headache, weakness, numbness, tingling, and seizure, Psych: Negative for depression, anxiety, suicide ideation, homicidal ideation, and hallucinations. 14:00 MS/extremity: Positive for injury or acute deformity, contusion, pain, swelling, of the medial aspect of right hand. Exam: 13:58 Constitutional: This is a well developed, well nourished patient who is awake, alert, snw and in no acute distress. Head/Face: Normocephalic, atraumatic. Eyes: Pupils equal round and reactive to light, extra-ocular motions intact. Lids and lashes normal. Conjunctiva and sclera are non-icteric and not injected. Cornea within normal limits. Periorbital areas with no swelling, redness, or edema. ENT: Nares patent. No nasal discharge, no septal abnormalities noted. Tympanic membranes are normal and external auditory canals are clear. Oropharynx with no redness, swelling, or masses, exudates, or evidence of obstruction, uvula midline. Mucous membranes moist. Neck: Trachea midline, no thyromegaly or masses palpated, and no cervical lymphadenopathy. Supple, full range of motion without nuchal rigidity, or vertebral point tenderness. No Meningismus. Chest/axilla: Normal chest wall appearance and motion. Nontender with no deformity. No lesions are appreciated. Cardiovascular: Regular rate and rhythm with a normal S1 and S2. No gallops, murmurs, or rubs. Normal PMI, no JVD. No pulse deficits. Respiratory: Lungs have equal breath sounds bilaterally, clear to auscultation and percussion. No rales, rhonchi or wheezes noted. No increased work of breathing, no retractions or nasal flaring. Abdomen/GI: Soft, non-tender, with normal bowel sounds. No distension or tympany. No guarding or rebound. No evidence of tenderness throughout. Back: No spinal tenderness. No costovertebral tenderness. Full range of motion. Skin: Warm, dry with normal turgor. Normal color with no rashes, no lesions, and no evidence of cellulitis. Neuro: Awake and alert, GCS 15, oriented to person, place, time, and situation. Cranial nerves II-XII grossly intact. Motor strength 5/5 in all extremities. Sensory grossly intact. Cerebellar exam normal. Normal gait. 13:58 Musculoskeletal/extremity: Extremities: all appear grossly normal, with no appreciated pain with palpation, ROM: limited active range of motion due to pain, limited passive range of motion due to pain, Circulation is intact in all extremities. Sensation intact. medial right hand with edema Vital Signs: 13:22 BP 159 / 112; Pulse 93; Resp 20; Temp 98.7; Pulse Ox 100% ; Weight 104.33 kg; Height 5 ss ft. 10 in. (177.80 cm); Pain 4/10; 13:22 Body Mass Index 33.00 (104.33 kg, 177.80 cm) ss Procedures: 14:51 Splinting: Splint applied to medial aspect of right hand using Orthoglass splint, snw applied by tech. MDM: 13:42 Patient medically screened. snw 14:50 Data reviewed: vital signs, nurses notes. Data interpreted: Pulse oximetry: on room air snw is 100 %. Interpretation: normal. Counseling: I had a detailed discussion with the patient and/or guardian regarding: the historical points, exam findings, and any diagnostic results supporting the discharge/admit diagnosis, the presence of at least one elevated blood pressure reading (>120/80) during this emergency department visit, radiology results, the need for outpatient follow up, for definitive care, to return to the emergency department if symptoms worsen or persist or if there are any questions or concerns that arise at home. Special discussion: I have referred the patient to see his PCP for further evaluation of high blood pressure. Based on the history and exam findings, there is no indication for further emergent testing or inpatient evaluation. I discussed with the patient/guardian the need to see the orthopedic surgeon for further evaluation of the symptoms. 01/16 13:37 Order name: Hand Right 3 View XRAY; Complete Time: 14:39 snw 01/16 14:39 Order name: Ulnar Gutter splint; Complete Time: 14:59 snw Administered Medications: 14:01 Drug: Hewlett (HYDROcodone-acetaminophen) 5 mg-325 mg 1 tabs Route: PO; mb9 14:55 Follow up: Response: No adverse reaction hb 14:55 Drug: Motrin (ibuprofen) 600 mg Route: PO; hb 15:30 Follow up: Response: No adverse reaction hb Disposition Summary: 01/16/22 15:00 Discharge Ordered Location: Home snw Condition: Stable snw Diagnosis - Comminuted right fourth metacarpal fracture snw Followup: snw - With: Emergency Department - When: As needed - Reason: Worsening of condition Followup: snw - With: Private Physician - When: 2 - 3 days - Reason: Recheck today's complaints, Continuance of care, Re-evaluation by your physician Discharge Instructions: - Discharge Summary Sheet snw - Cast or Splint Care, Adult snw - Metacarpal Fracture snw - RICE Therapy for Routine Care of Injuries snw - DASH Eating Plan snw - Form - Blood Pressure Record Sheet snw - How to Take Your Blood Pressure snw Forms: - Medication Reconciliation Form snw - Thank You Letter snw - Antibiotic Education snw - Prescription Opioid Use snw Prescriptions: - Mobic 7.5 mg Oral Tablet - take 1 tablet by ORAL route once daily take with food; 20 tablet; Refills: 0, snw Product Selection Permitted - Tramadol 50 mg Oral Tablet - take 1 tablet by ORAL route every 8 hours as needed; 12 tablet; Refills: 0, snw Product Selection Permitted Signatures: Dispatcher [employer] Carmela Hollingsworth FNP-C HARDWARE TRAINER-Csnw Roseanne Avendaño RN RN ss Baxter, Heather RN RN Miya Beck RN RN mb9
[2022-01-16 15:35] VITALS: BP 159/112; TEMP 98.7; O2SAT 100
== END 2022-01-16 15:31 | disposition home or self-care (01) ==
LOC: ER 12:40
PROC: 2W3EX1Z Immobilization of Right Hand using Splint (ICD-10-PCS; principal; 2022-01-16)
DX: S62.304A Unspecified fracture of fourth metacarpal bone, right hand, initial encounter for closed fracture (principal); F17.210 Nicotine dependence, cigarettes, uncomplicated; Z91.013 Allergy to seafood
CPT/HCPCS: 99284

== ENCOUNTER → 2023-06-01 | Emergency (ER) | payer OTHER ==
[~2023-06-01] MED LIST: ACETAMINOPHEN 500 MG TAB ONE; ALBUTEROL 2.5 MG/3 ML NEB SOL ONE; IPRATROPIUM BROM 0.5MG/2.5ML ONE; predniSONE 20 MG TAB ONE
--- NOTE | 2023-06-01 11:44 | RAD REPORT ---
EXAM DESCRIPTION: RADChest Single View06/01/2023 11:30 am CLINICAL HISTORY: wheezing COMPARISON: No comparisonsChest Single View dated 06/16/2021; CHEST PA AND LAT 2 VIEW dated 04/01/2011; CHEST PA AND LAT 2 VIEW dated 07/20/2009; CHEST SINGLE VIEW dated 12/03/2007Chest Single View dated 06/16; CHEST PA AND LAT 2 VIEW dated 04/01/2011; CHEST PA AND LAT 2 VIEW dated 07/20/2009; CHEST SINGLE VIEW dated 12/03/2007 TECHNIQUE: Portable AP view of the chest. FINDINGS: The lungs are clear. No pneumothorax or effusion. The cardiomediastinal contours are unre markable. IMPRESSION: No acute cardiopulmonary process.
--- NOTE | 2023-06-01 12:19 | ER ---
Nurse's Notes [facility] Name: Garcia Mcelroy Age: 32 yrs Sex: Male : 1990 Arrival Date: 06/01/2023 Time: 10:36 Bed 20 Private MD: Diagnosis: Bronchitis, asthma exacerbation, fever Presentation: 05/31 10:50 Chief complaint: Patient states: SOB, wheezing since Tuesday. No fever. Coronavirus ll1 screen: Client denies travel out of the [place] in the last 14 days. difficulty breathing, shortness of breath, Client presents with at least one sign or symptom that may indicate coronavirus-19. Standard/surgical mask placed on the client. Ebola Screen: Patient denies travel to an Ebola-affected area in the 21 days before illness onset. Initial Sepsis Screen: Does the patient meet any 2 criteria? No. Patient's initial sepsis screen is negative. Does the patient have a suspected source of infection? No. Patient's initial sepsis screen is negative. Risk Assessment: Do you want to hurt yourself or someone else? Patient reports no desire to harm self or others. Onset of symptoms was May 27, 2023. 10:50 Method Of Arrival: Ambulatory ll1 10:50 Acuity: SCOTT 3 ll1 Triage Assessment: 11:05 Respiratory: Onset: The symptoms/episode began/occurred Tuesday. banner Historical: - Allergies: 10:50 SHELLFISH; ll1 - PMHx: 10:50 Asthma; ll1 - Immunization history:: Adult Immunizations up to date. - Social history:: Smoking status: Patient denies any tobacco usage or history of. Screenin:05 [facility] ED Fall Risk Assessment (Adult) History of falling in the last 3 months, banner including since admission No falls in past 3 months (0 pts) Confusion or Disorientation No (0 pts) Intoxicated or Sedated No (0 pts) Impaired Gait No (0 pts) Mobility Assist Device Used No (0 pt) Altered Elimination No (0 pt) Score/Fall Risk Level 0 - 2 = Low Risk Oriented to surroundings, Maintained a safe environment, Hourly rounding (assess needs \T\ fall precautionary measures) done. Abuse screen: Denies threats or abuse. Denies injuries from another. Nutritional screening: No deficits noted. Tuberculosis screening: No symptoms or risk factors identified. Assessment: 10:50 General: Appears in no apparent distress. uncomfortable, Behavior is calm, cooperative, nj1 appropriate for age. Pain: Denies pain. Neuro: Level of Consciousness is awake, alert, obeys commands, Oriented to person, place, time, situation. Cardiovascular: Patient's skin is warm and dry. Rhythm is sinus tachycardia. Respiratory: Reports shortness of breath since tuesday labored breathing Airway is patent Respiratory effort is even, unlabored, Breath sounds are clear bilaterally. Vital Signs: 10:50 BP 135 / 94; Pulse 113; Resp 24; Temp 98.1; Pulse Ox 100% on R/A; Weight 108.86 kg; ll1 Height 5 ft. 11 in. ; Pain 0/10; 10:50 BP 135 / 94; Pulse 114; Resp 20; Temp 97.2(TE); Pulse Ox 100% on R/A; nj1 12:00 BP 133 / 87; Pulse 107; Resp 18; Temp 100(TE); Pulse Ox 100% on R/A; nj1 10:50 Body Mass Index 33.47 (108.86 kg, 180.34 cm) ll1 10:50 Pain Scale: Adult ll1 ED Course: 10:41 Patient arrived in ED. im 10:41 Jackie Salazar MD is Attending Physician. sp3 10:50 Arm band placed on Patient placed in an exam room, on a stretcher. ll1 10:52 Triage completed. ll1 10:57 Polly Duncan, RN is Primary Nurse. nj1 11:06 Patient has correct armband on for positive identification. Bed in low position. Call nj1 light in reach. Provided Education on: call light, fall precautions. 11:32 CXR XRAY In Process Unspecified. EDMS Administered Medications: 11:00 Drug: predniSONE PO 40 mg PO once Route: PO; nj1 11:54 Follow up: Response: No adverse reaction nj1 11:00 Drug: DuoNeb Nebulize (3:1) (2.5 mg - 0.5 mg) 3 ml Nebulizer once Route: Nebulizer; nj1 11:54 Follow up: Response: No adverse reaction nj1 11:07 Not Given (Duplicate Order): DuoNeb Nebulize (3:1) (2.5 mg - 0.5 mg) 3 ml Nebulizer oncenj1 11:07 Not Given (Duplicate Order): [id number] mg PO once nj1 11:59 Drug: DuoNeb Nebulize (3:1) (2.5 mg - 0.5 mg) 3 ml Nebulizer once Route: Nebulizer; nj1 12:18 Drug: Acetaminophen PO 1000 mg PO once Route: PO; nj1 Outcome: 12:18 Discharge ordered by MD. yu 13:26 Patient left the ED. nj1 Signatures: Dispatcher [employer] EDHerrera Liz RN RN ll1 Jackie Salazar MD MD sp3 Polly Duncan RN RN nj1 Riana Shaikh im Corrections: (The following items were deleted from the chart) 10:52 10:50 Resp 24bpm; Temp 98.1F; 108.86 kg; Height 5 ft. 11 in.; BMI: 33.4; Pain 0/10, ll1 Adult; ll1 10:52 10:50 BP 135 / 94; Pulse 113bpm; Resp 24bpm; Temp 98.1F; 108.86 kg; Height 5 ft. 11 ll1 in.; BMI: 33.4; Pain 0/10, Adult; ll1
--- NOTE | 2023-06-01 12:19 | EDPHYS ---
Physician Documentation [facility] Name: Garcia Mcelroy Age: 32 yrs Sex: Male : 1990 Arrival Date: 06/01/2023 Time: 10:36 Bed 20 Private MD: ED Physician Jackie Salazar HPI: 05/31 11:16 This 32 yrs old Black Male presents to ER via Ambulatory with complaints of Asthma sp3 Exacerbation, Breathing Difficulty. 11:16 32-year-old male with history of asthma presents with bronchospasm and difficulty sp3 breathing while at work. He denies recent asthma exacerbations and currently is not on any medications whatsoever. He also denies fever, productive cough, chest pain, headache, upper respiratory symptoms and throat and sinuses, abdominal pain, nausea, vomiting, diarrhea, known sick contacts, travel history, or any other signs or symptoms on ROS at this time.. Historical: - Allergies: 10:50 SHELLFISH; ll1 - PMHx: 10:50 Asthma; ll1 - Immunization history:: Adult Immunizations up to date. - Social history:: Smoking status: Patient denies any tobacco usage or history of. ROS: 11:17 Constitutional: Negative for fever, chills, and weight loss, Eyes: Negative for injury, sp3 pain, redness, and discharge, ENT: Negative for injury, pain, and discharge, Neck: Negative for injury, pain, and swelling, Cardiovascular: Negative for chest pain, palpitations, and edema, Abdomen/GI: Negative for abdominal pain, nausea, vomiting, diarrhea, and constipation, Back: Negative for injury and pain, MS/Extremity: Negative for injury and deformity, Skin: Negative for injury, rash, and discoloration, Neuro: Negative for headache, weakness, numbness, tingling, and seizure, Psych: Negative for depression, anxiety, suicide ideation, homicidal ideation, and hallucinations, Allergy/Immunology: Negative for hives, rash, and allergies, Endocrine: Negative for neck swelling, polydipsia, polyuria, polyphagia, and marked weight changes, Hematologic/Lymphatic: Negative for swollen nodes, abnormal bleeding, and unusual bruising, 11:17 All other systems are negative, Exam: 11:17 Constitutional: This is a well developed, well nourished patient who is awake, alert, sp3 and in no acute distress. Head/Face: Normocephalic, atraumatic. Eyes: Pupils equal round and reactive to light, extra-ocular motions intact. Lids and lashes normal. Conjunctiva and sclera are non-icteric and not injected. Cornea within normal limits. Periorbital areas with no swelling, redness, or edema. ENT: Nares patent. No nasal discharge, no septal abnormalities noted. External auditory canals are clear. Oropharynx with no redness, swelling, or masses, exudates, or evidence of obstruction, uvula midline. Mucous membranes moist. Neck: Trachea midline, no thyromegaly or masses palpated, and no cervical lymphadenopathy. Supple, full range of motion without nuchal rigidity, or vertebral point tenderness. No Meningismus. Chest/axilla: Normal chest wall appearance and motion. Nontender with no deformity. No lesions are appreciated. Cardiovascular: Regular rate and rhythm with a normal S1 and S2. No gallops, murmurs, or rubs. Normal PMI, no JVD. No pulse deficits. Abdomen/GI: Soft, non-tender, with normal bowel sounds. No distension or tympany. No guarding or rebound. No evidence of tenderness throughout. Back: No spinal tenderness. No costovertebral tenderness. Full range of motion. Skin: Warm, dry with normal turgor. Normal color with no rashes, no lesions, and no evidence of cellulitis. MS/ Extremity: Pulses equal, no cyanosis. Neurovascular intact. Full, normal range of motion. Neuro: Awake and alert, GCS 15, oriented to person, place, time, and situation. Cranial nerves II-XII grossly intact. Motor strength 5/5 in all extremities. Sensory grossly intact. Cerebellar exam normal. Normal gait. Psych: Awake, alert, with orientation to person, place and time. Behavior, mood, and affect are within normal limits. 11:17 Respiratory: Mild tachypnea, mild tachycardia and wheezing noted bilaterally. No accessory muscle use noted., Vital Signs: 10:50 BP 135 / 94; Pulse 113; Resp 24; Temp 98.1; Pulse Ox 100% on R/A; Weight 108.86 kg; ll1 Height 5 ft. 11 in. ; Pain 0/10; 10:50 BP 135 / 94; Pulse 114; Resp 20; Temp 97.2(TE); Pulse Ox 100% on R/A; nj1 12:00 BP 133 / 87; Pulse 107; Resp 18; Temp 100(TE); Pulse Ox 100% on R/A; nj1 10:50 Body Mass Index 33.47 (108.86 kg, 180.34 cm) ll1 10:50 Pain Scale: Adult ll1 MDM: 10:50 Patient medically screened. sp3 11:17 Data reviewed: vital signs, nurses notes, radiologic studies. ED course: 32-year-old sp3 male with asthma exacerbation. Will treat with nebulizer, p.o. prednisone and chest x-ray. I am not highly suspicious for pneumonia, flu or other infectious etiology. Will reevaluate and if improved, discharge patient home on p.o. prednisone and inhaler with spacer.. 12:17 ED course: Patient spiked a fever of 101. Will treat prophylactically given clear chest sp3 x-ray. Will discharge patient home on MDI with instructions to use with spacer, Zithromax and prednisone.. 05/31 11:03 Order name: CXR XRAY; Complete Time: 11:46 sp3 Administered Medications: 11:00 Drug: predniSONE PO 40 mg PO once Route: PO; nj1 11:54 Follow up: Response: No adverse reaction nj1 11:00 Drug: DuoNeb Nebulize (3:1) (2.5 mg - 0.5 mg) 3 ml Nebulizer once Route: Nebulizer; nj1 11:54 Follow up: Response: No adverse reaction nj1 11:07 Not Given (Duplicate Order): DuoNeb Nebulize (3:1) (2.5 mg - 0.5 mg) 3 ml Nebulizer oncenj1 11:07 Not Given (Duplicate Order): [id number] mg PO once nj1 11:59 Drug: DuoNeb Nebulize (3:1) (2.5 mg - 0.5 mg) 3 ml Nebulizer once Route: Nebulizer; nj1 12:18 Drug: Acetaminophen PO 1000 mg PO once Route: PO; nj1 Disposition Summary: 06/01/23 12:18 Discharge Ordered Notes: Location: Home sp3 Condition: Stable sp3 Diagnosis - Bronchitis, asthma exacerbation, fever sp3 Followup: sp3 - With: Private Physician - When: Upon discharge from the Emergency Department - Reason: Continuance of care Discharge Instructions: - Discharge Summary Sheet sp3 - Acute Bronchitis, Adult sp3 - Bronchospasm, Adult sp3 Forms: - Medication Reconciliation Form sp3 - Thank You Letter sp3 - Antibiotic Education sp3 - Prescription Opioid Use sp3 - Patient Portal Instructions sp3 - Leadership Thank You Letter sp3 Prescriptions: - Proventil HFA 90 mcg/actuation Inhalation HFA Aerosol Inhaler - inhale 2 inhalation INHALATION route every 4 to 6 hours as needed for sp3 bronchospasm; administer via ventilator; 1 unit; Refills: 0, Product Selection Permitted - Zithromax Z-Milton 250 mg Oral Tablet - take 1 tablet ORAL route as directed for 5 days Day 1 - take two (2) tablets sp3 one time. Day 2, 3, 4 , 5 take one (1) tablet once daily.; 6 tablet; Refills: 0, Product Selection Permitted - Prednisone 20 mg Oral Tablet - take 2 tablets ORAL route once daily for 5 days; 10 tablet; Refills: 0, Product sp3 Selection Permitted Signatures: Dispatcher [employer] Herrera Wyman RN RN ll1 Jackie Salazar MD MD sp3 Polly Duncan RN RN nj1
[2023-06-01 13:56] VITALS: BP 133/87; TEMP 100; O2SAT 100
== END ==
LOC: ER 10:36
DX: J45.901 Unspecified asthma with (acute) exacerbation (principal); Z91.013 Allergy to seafood
CPT/HCPCS: 71045; J7512; J7613 ×2; J7644 ×2